=== PATIENT | male | born 1965 | race Caucasian/White ===

== ENCOUNTER 2019-07-05 14:59 | Emergency (ER) | payer MEDICARE, SELFPAY ==
[2019-07-05] VITALS (9 sets, daily range): BP systolic 100–141; BP diastolic 72–97; PULSE 71–90; RESP 12–26; TEMP 36.6; O2SAT 97–100
--- NOTE | ~2019-07-05 | XR_ITS ---
EXAMINATION: XR chest 2V DATE: 07/05/2019 15:44 INDICATION: Midsternal chest pain. TECHNIQUE: Frontal and lateral views of the chest were obtained. COMPARISON: Chest single view 07/07/2018 FINDINGS: The lungs are hyperexpanded with lucencies and architectural distortion, consistent with em physema. There is mild scarring in the midlung zones. There is mild atelectasis at left lung base. No pleural effusion or pneumothorax. The heart size is normal. IMPRESSION: 1. Severe emphysema with mild scarring and mild left basilar atelectasis. Reviewed, dictated and finalized at location A.
--- NOTE | 2019-07-05 15:21 | ECG_ITS ---
Measurements Intervals [place] Rate: 71 P: 84 GA: 138 QRS: 88 QRSD: 93 T: 82 QT: 352 QTc: 384 Interpretive Statements SINUS RHYTHM INCOMPLETE RIGHT BUNDLE BRANCH BLOCK BORDERLINE ECG Electronically Signed On 07-05-2019 17:57:29 CDT by Damian Hui D.O.
--- NOTE | 2019-07-05 15:34 | ED.CHESTPAIN ---
HPI - Chest Pain General Chief Complaint: Chest Pain Stated Complaint: pain in chest area Source: patient Mode of arrival: ambulatory Limitations: no limitations History of Present Illness HPI narrative: 53-year-old with alpha-1 antitrypsin deficiency. At noon today he developed sharp midsternal chest pain, about the size of a half-dollar, rated 7-8/10. Pain occurs only with deep inspiration. It is not positional. Over the ensuing 3-1/2 hours the pain gradually decreased. The pain now is about a 3/10 when he takes a deep breath it does not always occur with every deep breath. He has otherwisebeen feeling his normal baseline self. He is on 4 L continuous O2. He has had no increased dyspnea, fevers, chills, nasal congestion, sore throat or cough. His last neb treatment was about 2 hours ago. He uses his nebulizer several times daily. Three years ago he had a right pneumothorax. Related Data Home Medications Medication Instructions Recorded Confirmed albuterol sulfate 2.5 mg INHALATION Q4-5H PRN 07/05/19 07/05/19 albuterol sulfate [ProAir HFA] 2 puff INHALATION Q4-5H PRN 07/05/19 07/05/19 alpha-1 proteinase inhib.(hum) 1,000 mg IV WEEKLY 07/05/19 07/05/19 [Prolastin-C] buspirone 5 mg PO BID 07/05/19 07/05/19 cyclobenzaprine 10 mg PO BID PRN 07/05/19 07/05/19 ipratropium bromide 1 mg INHALATION BID 07/05/19 07/05/19 Allergies Allergy/AdvReac Type Severity Reaction Status Date / Time No Known Allergies Allergy Verified 07/05/19 15:12 Review of Systems Constitutional: Constitutional: Reports no additional constitutional complaints Cardiovascular: Cardiovascular: Reports no additional cardiovascular complaints Respiratory: Respiratory: Reports no additional respiratory complaints Gastrointestinal: Gastrointestinal: Denies abdominal pain, Denies nausea and Denies vomiting Genitourinary: Genitourinary: Denies dysuria Integumentary/Breasts: Skin/Breast: Denies rash [facility] Past Medical History Medical History (Updated 07/05/19 @ 16:59 by Tyler Briscoe MD) 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 Able to take deep breaths. Vital Signs Vital signs: Vital Signs Temperature 36.6 C 07/05/19 15:17 Pulse Rate 90 07/05/19 15:17 Respiratory Rate 24 H 07/05/19 15:17 Blood Pressure 141/97 H 07/05/19 15:17 Pulse Oximetry 100 07/05/19 15:17 Temperature 36.6 C 07/05/19 15:17 Pulse Rate 73 07/05/19 16:45 Respiratory Rate 26 H 07/05/19 16:45 Blood Pressure 115/73 07/05/19 16:45 Pulse Oximetry 98 07/05/19 16:45 MDM - Chest Pain MDM Narrative Medical decision making narrative: Chest pain only with deep inspiration consistent with pulmonary etiology. X-ray showing atelectasis in the left base explains his symptoms. He had no increased dyspnea or hypoxemia associated with pain making pulmonary embolus on likely, particularly with the noted x-ray findings. No evidence of infection, cardiac ischemia or pneumonia Lab Data Attestation: I reviewed the patient's lab results. Result diagrams: 07/05/19 15:37 07/05/19 15:37 Labs: Lab Results 07/05/19 07/05/19 07/05/19 Range/Units 15:37 15:37 15:37 WBC 9.4 (4.8-10.8) K/mm3 RBC 4.52 L (4.70-6.10) M/mm3 Hgb 12.9 L (14.0-18.0) g/dL Hct 40.6 (40.0-54.0) % MCV 89.8 (78.0-102.0) fL MCH 28.5 (27.0-31.0) pg MCHC 31.8 L (32.0-36.0) g/dL RDW 13.0 (11.6-14.
[2019-07-05 15:41] LABS: Basophils Absolute Auto 0.09 K/mm3 (0.00-0.10); Eosinophils Absolute Auto 0.57 K/mm3 (0.02-0.50); Eosinophils Percent Auto 6.1 % (1.0-6.0); Hematocrit 40.6 % (40.0-54.0); Hemoglobin 12.9 g/dL (14.0-18.0); Immature Granulocyte Absolute 0.02 K/mm3 (0.00-0.00); Immature Granulocyte Percent A 0.2 % (0.0-0.0); Mean Corpuscular HGB Conc 31.8 g/dL (32.0-36.0); Mean Corpuscular Hemoglobin 28.5 pg (27.0-31.0); Mean Corpuscular Volume 89.8 fL (78.0-102.0); Mean Platelet Volume 9.1 fl (8.7-11.0); Monocytes Absolute Auto 1.12 K/mm3 (0.10-0.90); Monocytes Percent Auto 11.9 % (2.0-11.0); Neutrophils Absolute Auto 4.3 K/mm3 (1.7-7.2); Neutrophils Percent Auto 45.8 % (50.0-70.0); Platelet Count Result 241 K/mm3 (150-420); Red Blood Count 4.52 M/mm3 (4.70-6.10); White Blood Count 9.4 K/mm3 (4.8-10.8)
[2019-07-05 15:59] LABS: BNP 9.2 pg/mL (0-100)
[2019-07-05 16:01] LABS: Alanine Aminotransferase 23 U/L (16-63); Albumin Level 3.7 g/dL (3.4-5.0); Alkaline Phosphatase 72 U/L (46-116); Aspartate Amino Transferase 14 U/L (15-37); Bilirubin,Total 0.3 mg/dL (0.00-1.00); Blood Urea Nitrogen 11 mg/dL (7-18); Calcium 8.9 mg/dL (8.5-10.1); Carbon Dioxide 34 mmol/L (21-32); Chloride 100 mmol/L (98-108); Estimated CRCL calculation 100 ml/min; Estimated Glomerular Filt Rate > 60; Glucose 88 mg/dL (70-99); Osmolality Calculated 288 mOsm/kg (285-295); Sodium 140 mmol/L (136-145); Total Protein 6.8 g/dL (6.4-8.2)
[2019-07-05] MEDS: PANTOPRAZOLE SODIUM IV 40 MG VIAL IV PUSH (16:02)
[2019-07-05 16:05] LABS: Troponin I < 0.02 ng/mL (0.00-0.056)
[2019-07-05 16:43] LABS: Erythrocyte Sedimentation Rate 16 mm/hr (0-20)
== END 2019-07-05 17:07 | disposition home or self-care (01) ==
PROVIDERS: Emergency Provider Family Medicine
DX: R07.81 Pleurodynia (principal)
CPT/HCPCS: 36415; 71046; 80053; 83880; 84484; 85025; 85652; 93005; 94640; 96374; 99283; 99284; A9270; C9113

== ENCOUNTER 2019-12-16 13:20 | Outpatient (CLI) | payer MEDICARE, SELFPAY ==
--- NOTE | ~2019-12-16 | XR_ITS ---
XR chest 2V DATE: 12/16/2019 13:47 INDICATION: Midsternal chest, hypoxia TECHNIQUE: PA and lateral views COMPARISON: 07/05/2019 PA and lateral chest FINDINGS: There is prominent bilateral hyperinflation and flattening of the diaphragm and increased r etrosternal airspace, consistent with severe COPD. No pulmonary infiltrate or consolidation, pulmonary vascular congestion or pleural effusion or pneumo thorax. Normal heart size. Diffuse osteopenia. There is mild dextroscoliosis of the thoracic spine. IMPRESSION: Severe COPD Reviewed, dictated and finalized at location A. IMPRESSION: Severe COPD
== END 2019-12-16 13:21 | disposition home or self-care (01) ==
DX: J44.9 Chronic obstructive pulmonary disease, unspecified (principal)
CPT/HCPCS: 71046

== ENCOUNTER 2020-04-04 08:40 | Outpatient (CLI) | payer MEDICARE, SELFPAY ==
--- NOTE | ~2020-04-04 | XR_ITS ---
EXAMINATION: XR chest 2V DATE: 04/04/2020 09:02 INDICATION: Dyspnea. Chronic obstructive pulmonary disease. TECHNIQUE: Frontal and lateral views of the chest were obtained. COMPARISON: Chest 2 views 12/16/2019 FINDINGS: The lungs are hyperexpanded with lucencies including a large bulla at right lung base, cons istent with emphysema. There is mild atelectasis and scarring in the mid and lower lung zones. No ple ural effusion or pneumothorax. The heart size is normal. IMPRESSION: 1. Severe emphysema. Reviewed, dictated and finalized at location A. ICAL UNIT OPERATOR IMPRESSION: 1. Severe emphysema.
== END 2020-04-04 08:41 | disposition home or self-care (01) ==
LOC: CHSIMG 08:43
PROVIDERS: PCP Nurse Practitioner; Visit Provider Internal Medicine Pulmonary Disease
DX: J44.9 Chronic obstructive pulmonary disease, unspecified (principal)
CPT/HCPCS: 71046

== ENCOUNTER 2020-05-29 07:00 | Emergency (ER) | payer MEDICARE, SELFPAY ==
--- NOTE | ~2020-05-29 | XR_ITS ---
EXAMINATION: XR chest 2V DATE: 05/29/2020 07:50 INDICATION: Shortness of breath, reported history of alpha-1 antitrypsin disease. TECHNIQUE: PA and lateral views of the chest are obtained. COMPARISON: 04/04/2020 FINDINGS: The lungs are hyperinflated but free of acute opacities. A large bulla is again noted in th e right lung base. There is no pleural effusion or pneumothorax. The cardiomediastinal silhouette is normal. There is mild thoracic spondylosis. IMPRESSION: 1. No acute cardiopulmonary abnormality. Reviewed, dictated and finalized at location A. AD CUTTER
[2020-05-29 07:00] VITALS: BP 133/86; PULSE 83; RESP 20; TEMP 36.7; O2SAT 100
[2020-05-29 07:10] VITALS: O2SAT 96
[2020-05-29] MEDS: ORPHENADRINE CITRATE 30 MG/ML 2 ML VIAL 60 MG IV PUSH (07:17)
[2020-05-29] MEDS: PANTOPRAZOLE SODIUM IV 40 MG VIAL IV PUSH (07:17)
[2020-05-29 07:28] LABS: Base Excess ABG 2.8 mmol/L (0-2); Basophils Absolute Auto 0.11 K/mm3 (0.00-0.10); Basophils Percent Auto 0.9 % (0.0-1.0); Eosinophils Absolute Auto 0.91 K/mm3 (0.02-0.50); Eosinophils Percent Auto 7.5 % (1.0-6.0); HCO3 ABG 28.7 mmol/L (23-29); Hematocrit 39.5 % (40.0-54.0); Hemoglobin 12.4 g/dL (14.0-18.0); Immature Granulocyte Absolute 0.05 K/mm3 (0.00-0.00); Immature Granulocyte Percent A 0.4 % (0.0-0.0); Lymphocytes Absolute Auto 2.78 K/mm3 (1.10-4.50); Lymphocytes Percent Auto 22.8 % (18.0-42.0); Mean Corpuscular HGB Conc 31.4 g/dL (32.0-36.0); Mean Corpuscular Hemoglobin 27.9 pg (27.0-31.0); Mean Platelet Volume 9.3 fl (8.7-11.0); Monocytes Absolute Auto 1.35 K/mm3 (0.10-0.90); Monocytes Percent Auto 11.1 % (2.0-11.0); Neutrophils Percent Auto 57.3 % (50.0-70.0); Oxygen Content ABG 17.6 %vol (16.0-22.0); Oxyhemoglobin 94.4 % (94-100); PCO2 ABG 49.8 mmHg (35-45); PO2 ABG 74.4 mmHg (80-90); Platelet Count Result 283 K/mm3 (150-420); Red Blood Count 4.44 M/mm3 (4.70-6.10); Red Cell Distribution Width 14.4 % (11.6-14.4); Total Hemoglobin 13.2 g/dL; White Blood Count 12.2 K/mm3 (4.8-10.8); pH ABG 7.38 (7.35-7.45)
[2020-05-29 07:29] LABS: Device NASAL CANNULA; Modified Allen's Test Pass; Site Drawn RIGHT RADIAL
[2020-05-29 07:44] LABS: Alanine Aminotransferase 16 U/L (16-63); Albumin Level 3.7 g/dL (3.4-5.0); Alkaline Phosphatase 88 U/L (46-116); Anion Gap 5 mmol/L (8-16); Aspartate Amino Transferase 14 U/L (15-37); Bilirubin,Total 0.2 mg/dL (0.00-1.00); Blood Urea Nitrogen 17 mg/dL (7-18); Calcium 8.8 mg/dL (8.5-10.1); Carbon Dioxide 35 mmol/L (21-32); Chloride 102 mmol/L (98-108); Estimated Glomerular Filt Rate > 60; Glucose 112 mg/dL (70-99); Magnesium 1.8 mg/dL (1.8-2.4); Osmolality Calculated 296 mOsm/kg (285-295); Potassium 4.4 mmol/L (3.5-5.1); Sodium 142 mmol/L (136-145); Total Protein 7.4 g/dL (6.4-8.2)
--- NOTE | 2020-05-29 07:47 | ED.SOB ---
HPI - SOB/Dyspnea General Chief Complaint: Shortness of Breath/Dyspnea Stated Complaint: ambulance Source: patient Mode of arrival: EMS Limitations: no limitations History of Present Illness HPI Narrative: pt has COPD and about 2 weeks ago breathing got harder. He has had increased trouble since about 0530 am today. He took a breathing treatment, but he states that he usually comes to ED when it gets this bad. He said they give him breathing treatments and muscle relaxants and he begins to feel better. He has no fevers, no illness of anyother type. This is his normal copd exacerbation. MD elicited complaint: shortness of breath Pertinent past history: COPD Onset (ago): hour(s) Context: recent illness Timing: constant Severity: mild Exacerbating factors: exertion Relieving factors: bronchodilators Known history of: COPD Associated symptoms: denies other symptoms (does have some mild nausea a gerd sxs) Treatment prior to arrival: oxygen and bronchodilator Related Data Home oxygen amount: 4 liters Home Medications Medication Instructions Recorded Confirmed albuterol sulfate 2.5 mg INHALATION Q4-5H PRN 07/05/19 05/29/20 albuterol sulfate [ProAir HFA] 2 puff INHALATION Q4-5H PRN 07/05/19 05/29/20 alpha-1 proteinase inhib.(hum) 1,000 mg IV WEEKLY 07/05/19 05/29/20 [Prolastin-C] buspirone 5 mg PO BID 07/05/19 05/29/20 cyclobenzaprine 10 mg PO BID PRN 07/05/19 05/29/20 ipratropium bromide 1 mg INHALATION BID 07/05/19 05/29/20 aspirin [Aspir-81] 81 mg PO DAILY 05/29/20 05/29/20 cholecalciferol (vitamin D3) 10 mcg PO DAILY 05/29/20 05/29/20 [Vitamin D3] ipratropium-albuterol [Combivent 1 puff INHALATION QID 05/29/20 05/29/20 Respimat] teyovpdb-tbg-KT-lycopen-lutein 1 tablet PO DAILY 05/29/20 05/29/20 [Centrum Silver Men] bmrnmrns-uel-ovvibnfe-herb 124 1 ml PO DAILY 05/29/20 05/29/20 [Airborne Natural Energy] tiotropium bromide [Spiriva 2 puff INHALATION DAILY 05/29/20 05/29/20 Respimat] Allergies Allergy/AdvReac Type Severity Reaction Status Date / Time No Known Allergies Allergy Verified 08/09/19 08:37 Review of Systems Review of Systems: All systems reviewed & are unremarkable except as noted in HPI and below Constitutional: Constitutional: Reports no additional constitutional complaints Eyes: Eyes: Reports no additional eye complaints ENT: Reports system reviewed and no additional complaints, except as documented Cardiovascular: Cardiovascular: Reports no additional cardiovascular complaints Respiratory: Respiratory: Reports no additional respiratory complaints Gastrointestinal: Gastrointestinal: Reports no additional gastrointestinal complaints Genitourinary: Genitourinary: Reports no additional male genitourinary complaints Musculoskeletal: Musculoskeletal: Reports no additional musculoskeletal complaints Integumentary/Breasts: Skin/Breast: Reports system reviewed and no additional complaints, except as docu Neurologic: Reports system reviewed and no additional complaints, except as documented Psychiatric: Psychiatric: Reports no additional psychiatric complaints Endocrine: Endocrine: Reports no additional endocrine complaints Hematologic/Lymphatic: Hematologic/Lymphatic: Reports no additional hematologic/lymphatic complaints Allergic/Immunologic: Allergic/Immunologic: Reports no additional allergic/immunologic complaints [facility] Past Medical History Medical History Alpha 1-antitrypsin PiMS phenotype Thoracostomy tube in place Social History Social History (Updated 05/29/20 @ 07:52 by Daxa Arroyo MD) Smoking status: Former smoker Alcohol intake: never Substance use: never Exam Const: General: no acute distress and alert Orientation/consciousness: patient oriented x3 HENMT: Head: normal to inspection Eyes: Conjunctivae: conjunctivae normal Pupils: Equal, round and reactive pupils present Neck:
--- NOTE | 2020-05-29 07:53 | ECG_ITS ---
Measurements Intervals [place] Rate: 76 P: 84 NH: 135 QRS: 90 QRSD: 88 T: 87 QT: 383 QTc: 433 Interpretive Statements SINUS RHYTHM BORDERLINE T WAVE ABNORMALITY- HIGH LATERAL LEADS BASELINE ARTIFACT- V3-V6 BORDERLINE ECG Electronically Signed On 05-29-2020 8:21:40 MANAGER TELE[employer] by Damian Hui D.O.
[2020-05-29] MEDS: IPRATROPIUM 0.5 MG/ALBUTEROL SULFATE 2.5 MG AMPUL.NEB 3 ML INHALATION (08:05)
[2020-05-29 08:06] VITALS: PULSE 77; RESP 20; O2SAT 98
[2020-05-29 08:13] VITALS: PULSE 73; RESP 20; O2SAT 99
[2020-05-29] MEDS: LORazepam (*CRX) 0.5 MG TABLET PO (08:48)
--- NOTE | 2020-05-29 08:49 | PC.NURSE ---
PT ROCKING IN BED, NOW REPORTS RIGHT SIDE BACK PAIN - ATIVAN OFFERED - STATES OTHERWISE FEELING BETTER
[2020-05-29 08:50] VITALS: BP 137/92; PULSE 80; O2SAT 97
[2020-05-29 09:13] VITALS: BP 117/75; PULSE 80; O2SAT 99
== END 2020-05-29 09:15 | disposition home or self-care (01) ==
PROVIDERS: Emergency Medicine; Emergency Provider Emergency Medicine
DX: E88.01 Alpha-1-antitrypsin deficiency (principal)
CPT/HCPCS: 36415; 36600; 71046; 80053; 82805; 83735; 85025; 93005; 94640; 96374; 96375; 99283; 99284; A9270; C9113; J2360

== ENCOUNTER 2020-05-31 08:07 | Emergency (ER) | payer MEDICARE, SELFPAY ==
[2020-05-31 08:23] VITALS: BP 128/84; PULSE 105; RESP 22; TEMP 36.9; O2SAT 95
--- NOTE | 2020-05-31 08:36 | ED.EAR ---
HPI - Ear Problem General Chief complaint: Ear Stated complaint: EAR IS BLEEDING CANT HEAR OUT OF IT Source: patient and family Mode of arrival: ambulatory Limitations: no limitations History of Present Illness HPI Narrative: patient with history of COPD secondary to alpha 1 anti trypsin deficiency was seen yesterday and treated for an upper respiratory tract infection and was started on Z-Ryan and Medrol Dosepak, early this morning developed bleeding from the right ear canal with decreased hearing. Currently does have some pain but described as discomfort, with some sinus congestion. Currently there is no fever or chills currently is not short breath with no cough no congestion no chest pain. MD Complaint: ear discharge and decreased hearing Location: right ear Duration: constant Severity: moderate Relieving factors: nothing Exacerbating factors: nothing Context: Reports recent illness Discharge from ear: Reports yes - bloody Related Data Home Medications Medication Instructions Recorded Confirmed albuterol sulfate 2.5 mg INHALATION Q4-5H PRN 07/05/19 05/31/20 albuterol sulfate [ProAir HFA] 2 puff INHALATION Q4-5H PRN 07/05/19 05/31/20 alpha-1 proteinase inhib.(hum) 1,000 mg IV WEEKLY 07/05/19 05/31/20 [Prolastin-C] buspirone 5 mg PO BID 07/05/19 05/31/20 cyclobenzaprine 10 mg PO BID PRN 07/05/19 05/31/20 ipratropium bromide 1 mg INHALATION BID 07/05/19 05/31/20 aspirin [Aspir-81] 81 mg PO DAILY 05/29/20 05/31/20 cholecalciferol (vitamin D3) 10 mcg PO DAILY 05/29/20 05/31/20 [Vitamin D3] ipratropium-albuterol [Combivent 1 puff INHALATION QID 05/29/20 05/31/20 Respimat] dubmdeaa-isg-HS-lycopen-lutein 1 tablet PO DAILY 05/29/20 05/31/20 [Centrum Silver Men] mosuapsp-puc-ogdmxxfu-herb 124 1 ml PO DAILY 05/29/20 05/31/20 [Airborne Natural Energy] tiotropium bromide [Spiriva 2 puff INHALATION DAILY 05/29/20 05/31/20 Respimat] Allergies Allergy/AdvReac Type Severity Reaction Status Date / Time No Known Allergies Allergy Verified 08/09/19 08:37 Review of Systems Review of Systems: All systems reviewed & are unremarkable except as noted in HPI and below PMFSH Past Medical History Medical History Alpha 1-antitrypsin PiMS phenotype Thoracostomy tube in place Social History Social History Smoking status: Former smoker Alcohol intake: never Substance use: never Exam Const: General: no acute distress and alert Orientation/consciousness: patient oriented x3 HENMT: Other: Right ear canal appears to have blood and he can visualize a ruptured tympanic membrane Eyes: Conjunctivae: conjunctivae normal Pupils: Equal, round and reactive pupils present Chest: Chest palpation & inspection: normal inspection of the chest Resp: Auscultation: diminished lung sounds Cardio: Rate: regular rate Rhythm: regular rhythm GI: Auscultation: normal bowel sounds Back/Spine/Pelvis: Back: no CVA tenderness Neuro: General: patient oriented x3 Extrem: General: normal to inspection Psych: Appearance: grossly normal Mental Status: mental status grossly normal Affect: normal affect Course Course Emergency Course: will give the patient a dose of IM ceftriaxone, advised him to stop his Z-Ryan, and start Augmentin and Cipro otic ear drops and to follow-up with his primary care physician for referral to ENT for further evaluation. Vital Signs Vital signs: Vital Signs Temperature 36.9 C 05/31/20 08:23 Pulse Rate 105 H 05/31/20 08:23 Respiratory Rate 22 H 05/31/20 08:23 Blood Pressure 128/84 05/31/20 08:23 Pulse Oximetry 95 05/31/20 08:23 Temperature 36.9 C 05/31/20 08:23 Pulse Rate 105 H 05/31/20 08:23 Respiratory Rate 22 H 05/31/20 08:23 Blood Pressure 128/84 05/31/20 08:23 Pulse Oximetry 95 05/31/20 08:23 Medical Decision Making Vital Signs Vital Signs:
[2020-05-31] MEDS: cefTRIAXone 1 GM VIAL IM (08:40)
== END 2020-05-31 08:56 | disposition home or self-care (01) ==
PROVIDERS: Emergency Provider Emergency Medicine
DX: H72.91 Unspecified perforation of tympanic membrane, right ear (principal); H91.91 Unspecified hearing loss, right ear; Z87.891 Personal history of nicotine dependence
CPT/HCPCS: 96372; 99283; J0696

== ENCOUNTER 2020-09-05 10:26 | Outpatient (CLI) | payer MEDICARE, SELFPAY ==
[2020-09-05 10:39] LABS: Base Excess ABG 0.4 mmol/L (0-2); HCO3 ABG 25.5 mmol/L (23-29); Oxygen Content ABG 16.5 %vol (16.0-22.0); Oxygen Saturation ABG 91.2 % (95-97); PO2 ABG 58.3 mmHg (80-90); Total Hemoglobin 13.5 g/dL; pH ABG 7.39 (7.35-7.45)
[2020-09-05 10:40] LABS: Site Drawn RIGHT RADIAL
[2020-09-05 10:41] LABS: Device NASAL CANNULA; Modified Allen's Test Pass
--- NOTE | 2020-09-07 12:19 | WPDPFTINT ---
PFT Procedure Performed PFT Procedure Performed Spirometry with Pre/Post Bronchodilator Plethysmography (Lung Vol) Diffusing Cap (DLCO) Flow Vol Loop PFT Interpretation DOS: 09/05/2020 REQUESTING: Dr. Amanda Gil REASON FOR TESTING: emphysema PULMONARY FUNCTION TESTS Results are reliable and reproducible. Spirometry: FEV1 is 19% predicted, 0.59 L. This is extremely low. The FVC is 54% predicted. The FEV1/ FVC ratio was 34% consistent with airflow obstruction. After bronchodilator administration there is a 14% increase in the FVC 190 ml; this does not meet the ATS requirement for 200 ml for statistically significant improvement. Lung volumes: Total lung capacity mildly increased 136%. Residual volume severely increased at 188% consistent with severe air trapping. Airway resistance is elevated 599%. Diffusion: DLCO is 24%. This is a severe reduction. Flow volume loop: Severe scooping of the expiratory limb. IMPRESSION: Extremely severe obstructive ventilatory impairment with response to bronchodilator that does not meet ATS criteria for statistically significant response but this should not preclude use if clinically indicated. Mild hyperinflation with severe air trapping, increased airway resistance and severe diffusion impairment. This is consistent with emphysema. There are no prior studies for comparison. Jelly Lozano MD
== END 2020-09-05 10:27 | disposition home or self-care (01) ==
PROVIDERS: PCP Nurse Practitioner; Visit Provider Internal Medicine Pulmonary Disease
DX: J43.2 Centrilobular emphysema (principal)
CPT/HCPCS: 36600; 82805; 94060; 94726; 94729

== ENCOUNTER 2020-11-29 08:00 | Emergency (ER) | payer MEDICARE, SELFPAY ==
--- NOTE | ~2020-11-29 | XR_ITS ---
XR chest 1V portable 11/29/2020 08:31 Indication: Dyspnea. COPD. Procedure: AP portable chest Comparison: Comparison to multiple prior studies sequentially, with oldest reviewed study dated 08/26. Findings: Severe emphysema. Chronic bibasilar scarring. Heart size normal. No focal pneumonia, edema, pleural effusion or pneumothorax. Calcified granuloma right lower lung zone. No acute osseous abnorm ality. Impression: 1: No acute cardiopulmonary disease. 2: Severe emphysema. Reviewed, dictated and finalized at location A. Impression: 1: No acute cardiopulmonary disease. 2: Severe emphysema.
[2020-11-29 08:10] VITALS: O2SAT 94
[2020-11-29 08:14] VITALS: BP 103/84; PULSE 81; RESP 24; TEMP 36.3; O2SAT 94
--- NOTE | 2020-11-29 08:14 | ED.SOB ---
HPI - SOB/Dyspnea General Chief Complaint: Shortness of Breath/Dyspnea Stated Complaint: SOB Source: patient Mode of arrival: ambulatory Limitations: no limitations History of Present Illness HPI Narrative: Pt is able to speak full sentences. He states this started last night MD elicited complaint: shortness of breath Pertinent past history: COPD Onset (ago): day(s) Context: recent illness Timing: constant Severity: moderate Exacerbating factors: exertion Relieving factors: nothing and other (pt states that he needs a muscle relaxer, he states thats the only thing that will help) Known history of: COPD Associated symptoms: denies other symptoms (muscle tightness) Treatment prior to arrival: bronchodilator Related Data Home oxygen amount: other (6 liters) Home Medications Medication Instructions Recorded Confirmed albuterol sulfate 2.5 mg INHALATION Q4-5H PRN 07/05/19 11/29/20 albuterol sulfate [ProAir HFA] 2 puff INHALATION Q4-5H PRN 07/05/19 11/29/20 alpha-1 proteinase inhib.(hum) 1,000 mg IV WEEKLY 07/05/19 11/29/20 [Prolastin-C] buspirone 5 mg PO BID 07/05/19 11/29/20 cyclobenzaprine 10 mg PO BID PRN 07/05/19 11/29/20 ipratropium bromide 1 mg INHALATION BID 07/05/19 11/29/20 aspirin [Aspir-81] 81 mg PO DAILY 05/29/20 11/29/20 cholecalciferol (vitamin D3) 10 mcg PO DAILY 05/29/20 11/29/20 [Vitamin D3] ipratropium-albuterol [Combivent 1 puff INHALATION QID 05/29/20 11/29/20 Respimat] lnjhemuv-kyy-PW-lycopen-lutein 1 tablet PO DAILY 05/29/20 11/29/20 [Centrum Silver Men] jaauulqx-lhs-guajbdjq-herb 124 1 ml PO DAILY 05/29/20 11/29/20 [Airborne Natural Energy] tiotropium bromide [Spiriva 2 puff INHALATION DAILY 05/29/20 11/29/20 Respimat] Allergies Allergy/AdvReac Type Severity Reaction Status Date / Time No Known Allergies Allergy Verified 08/09/19 08:37 Review of Systems Constitutional: Constitutional: Reports no additional constitutional complaints Eyes: Eyes: Reports no additional eye complaints ENT: Reports system reviewed and no additional complaints, except as documented Cardiovascular: Cardiovascular: Reports no additional cardiovascular complaints and Reports chest pain (states that his chest tighness is muscle related) Respiratory: Respiratory: Denies chest congestion, Denies cough, Reports dyspnea and Reports wheezing Gastrointestinal: Gastrointestinal: Reports no additional gastrointestinal complaints Genitourinary: Genitourinary: Reports no additional male genitourinary complaints Musculoskeletal: Musculoskeletal: Reports no additional musculoskeletal complaints Integumentary/Breasts: Skin/Breast: Reports system reviewed and no additional complaints, except as docu Neurologic: Reports system reviewed and no additional complaints, except as documented Psychiatric: Psychiatric: Reports no additional psychiatric complaints Endocrine: Endocrine: Reports no additional endocrine complaints Hematologic/Lymphatic: Hematologic/Lymphatic: Reports no additional hematologic/lymphatic complaints Allergic/Immunologic: Allergic/Immunologic: Reports no additional allergic/immunologic complaints PMFSH Past Medical History Medical History 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
--- NOTE | 2020-11-29 08:15 | ECG_ITS ---
Measurements Intervals [place] Rate: 74 P: 86 NM: 124 QRS: 89 QRSD: 85 T: 87 QT: 359 QTc: 399 Interpretive Statements SINUS RHYTHM INCOMPLETE RIGHT BUNDLE BRANCH BLOCK DELAYED PRECORDIAL R/S TRANSITION MINIMAL Q WAVES- INFERIOR LEADS BASELINE ARTIFACT- V2-V4 BORDERLINE ECG Electronically Signed On 11-29-2020 11:10:46 CDT by Damian Hui D.O.
[2020-11-29] MEDS: LORazepam INJ (*CRX) 2 MG/ML VIAL 1 MG IV PUSH (08:25)
[2020-11-29] MEDS: methylPREDNISolone SOD SUCC 125 MG VIAL IV PUSH (08:27)
[2020-11-29] MEDS: IPRATROPIUM 0.5 MG/ALBUTEROL SULFATE 2.5 MG AMPUL.NEB 3 ML INHALATION (08:41)
[2020-11-29 08:44] VITALS: PULSE 72; RESP 24; O2SAT 99
[2020-11-29 08:44] LABS: Basophils Absolute Auto 0.08 K/mm3 (0.00-0.10); Basophils Percent Auto 0.5 % (0.0-1.0); Eosinophils Absolute Auto 0.59 K/mm3 (0.02-0.50); Eosinophils Percent Auto 3.5 % (1.0-6.0); Hematocrit 41.9 % (40.0-54.0); Hemoglobin 13.2 g/dL (14.0-18.0); Immature Granulocyte Absolute 0.06 K/mm3 (0.00-0.00); Immature Granulocyte Percent A 0.4 % (0.0-0.0); Lymphocytes Absolute Auto 3.59 K/mm3 (1.10-4.50); Mean Corpuscular HGB Conc 31.5 g/dL (32.0-36.0); Mean Corpuscular Hemoglobin 28.6 pg (27.0-31.0); Mean Corpuscular Volume 90.7 fL (78.0-102.0); Mean Platelet Volume 9.3 fl (8.7-11.0); Monocytes Absolute Auto 1.59 K/mm3 (0.10-0.90); Monocytes Percent Auto 9.3 % (2.0-11.0); Neutrophils Absolute Auto 11.2 K/mm3 (1.7-7.2); Neutrophils Percent Auto 65.3 % (50.0-70.0); Platelet Count Result 323 K/mm3 (150-420); Red Blood Count 4.62 M/mm3 (4.70-6.10); Red Cell Distribution Width 14.2 % (11.6-14.4); White Blood Count 17.1 K/mm3 (4.8-10.8)
[2020-11-29 08:55] VITALS: PULSE 74; RESP 24; O2SAT 100
[2020-11-29 08:56] LABS: D Dimer 0.34 mg/L (0.19-0.50)
[2020-11-29 09:01] LABS: Alanine Aminotransferase 27 U/L (16-63); Albumin Level 3.5 g/dL (3.4-5.0); Alkaline Phosphatase 77 U/L (46-116); Anion Gap 9 mmol/L (8-16); Aspartate Amino Transferase 30 U/L (15-37); Bilirubin,Total 0.2 mg/dL (0.00-1.00); Blood Urea Nitrogen 16 mg/dL (7-18); Calcium 8.8 mg/dL (8.5-10.1); Carbon Dioxide 33 mmol/L (21-32); Chloride 103 mmol/L (98-108); Estimated CRCL calculation 91 ml/min; Estimated Glomerular Filt Rate > 60; Glucose 151 mg/dL (70-99); Osmolality Calculated 304 mOsm/kg (285-295); Potassium 3.7 mmol/L (3.5-5.1); Sodium 145 mmol/L (136-145); Total Protein 7.2 g/dL (6.4-8.2); Troponin I 6.4 ng/L (0.00-60.4)
[2020-11-29 09:02] LABS: Magnesium 1.8 mg/dL (1.8-2.4)
[2020-11-29 09:22] VITALS: BP 111/93; PULSE 89; RESP 24; O2SAT 95
[2020-11-29 09:28] LABS: Base Excess ABG 2.8 mmol/L (0-2); HCO3 ABG 29.9 mmol/L (23-29); Oxygen Content ABG 17.5 %vol (16.0-22.0); Oxygen Saturation ABG 96.7 % (95-97); Oxyhemoglobin 95.1 % (94-100); PCO2 ABG 57.1 mmHg (35-45); PO2 ABG 90.9 mmHg (80-90); pH ABG 7.34 (7.35-7.45)
[2020-11-29 09:32] LABS: Device NASAL CANNULA; Modified Allen's Test Pass; Site Drawn RIGHT RADIAL
[2020-11-29 10:03] VITALS: RESP 24; O2SAT 98
== END 2020-11-29 10:05 | disposition home or self-care (01) ==
PROVIDERS: Emergency Provider Emergency Medicine; PCP Nurse Practitioner
DX: E88.01 Alpha-1-antitrypsin deficiency (principal)
CPT/HCPCS: 36415; 36600; 71045; 80053; 82805; 83735; 84484; 85025; 85380; 93005; 94640; 96374; 96375; 99283; 99284; J2060; J2930

== ENCOUNTER 2020-12-10 12:41 | Emergency (ER) | payer MEDICARE, SELFPAY ==
--- NOTE | ~2020-12-10 | US_ITS ---
EXAMINATION: US venous doppler [facility] EXAM DATE: 12/10/2020 13:49 INDICATION: calf pain . TECHNIQUE: Multiple grayscale, color flow and Doppler images of the left lower extremity deep venous system were obtained and reviewed. There is no prior study for comparison. FINDINGS: The left common femoral, femoral and profunda veins demonstrate normal color flow, respirat ory variation, augmentation and compressibility. Compressibility, color flow confirmed within the le ft popliteal, posterior tibial, peroneal, and greater saphenous veins. IMPRESSION: 1. No left lower extremity deep venous thrombosis. Reviewed, dictated and finalized at location B.
[2020-12-10 13:00] VITALS: BP 141/86; PULSE 99; RESP 24; TEMP 37.1; O2SAT 98
--- NOTE | 2020-12-10 14:03 | ED.LOWEXIN ---
HPI - Extremity Injury (Lower) General Chief Complaint: Extremity Injury, Lower Stated Complaint: L Leg pain Source: patient and family Mode of arrival: ambulatory History of Present Illness HPI Narrative: this is a 55-year-old gentleman that presents with some left calf pain after he had a blunt injury to posterior calf area has good range of motion with no joint pain no foot or ankle pain no swelling no bruising there is no erythema no warmth or tenderness with palpation currently the patient saw his visiting nurse today and was concerned that there may be a DVT and wanted to come to the emergency department to have that evaluated. Currently there is no swelling no erythema no calf tenderness. MD complaint: other ( Calf pain /injury) Onset (ago): day(s) Type of Injury: blunt Place: home Severity: mild Severity scale (1-10): 2 Relieving factors: nothing Exacerbating factors: nothing Context: direct blow Related Data Home Medications Medication Instructions Recorded Confirmed albuterol sulfate 2.5 mg INHALATION Q4-5H PRN 07/05/19 11/29/20 albuterol sulfate [ProAir HFA] 2 puff INHALATION Q4-5H PRN 07/05/19 11/29/20 alpha-1 proteinase inhib.(hum) 1,000 mg IV WEEKLY 07/05/19 11/29/20 [Prolastin-C] buspirone 5 mg PO BID 07/05/19 11/29/20 cyclobenzaprine 10 mg PO BID PRN 07/05/19 11/29/20 ipratropium bromide 1 mg INHALATION BID 07/05/19 11/29/20 aspirin [Aspir-81] 81 mg PO DAILY 05/29/20 11/29/20 cholecalciferol (vitamin D3) 10 mcg PO DAILY 05/29/20 11/29/20 [Vitamin D3] ipratropium-albuterol [Combivent 1 puff INHALATION QID 05/29/20 11/29/20 Respimat] uwndrfkn-ezl-YX-lycopen-lutein 1 tablet PO DAILY 05/29/20 11/29/20 [Centrum Silver Men] khddlyqi-ven-tqivrxsw-herb 124 1 ml PO DAILY 05/29/20 11/29/20 [Airborne Natural Energy] tiotropium bromide [Spiriva 2 puff INHALATION DAILY 05/29/20 11/29/20 Respimat] Allergies Allergy/AdvReac Type Severity Reaction Status Date / Time No Known Allergies Allergy Verified 08/09/19 08:37 Review of Systems Review of Systems: All systems reviewed & are unremarkable except as noted in HPI and below PMFSH Past Medical History Medical History Alpha 1-antitrypsin PiMS phenotype Thoracostomy tube in place Social History Social History Smoking status: Former smoker Alcohol intake: never Substance use: never Exam Const: General: no acute distress Orientation/consciousness: patient oriented x3 HENMT: Head: normal to inspection Eyes: Conjunctivae: conjunctivae normal Pupils: Equal, round and reactive pupils present Neck: Neck: normal visual inspection, no lymphadenopathy and no meningeal signs Chest: Chest palpation & inspection: normal inspection of the chest Resp: Effort & Inspection: normal respiratory effort Auscultation: clear to auscultation bilaterally Cardio: Rate: regular rate Rhythm: regular rhythm Urinary Catheter: Urinary Catheter: patent and draining Back/Spine/Pelvis: Back: no CVA tenderness Skin: General skin exam: normal color Rashes: no rashes Neuro: General: patient oriented x3 and moves all extremities Extrem: General: normal to inspection and no pedal edema Other: Currently no calf pain no swelling no erythema. Psych: Mental Status: mental status grossly normal Affect: normal affect Attitude: cooperative Course Course Emergency Course: Ultrasound results reviewed with patient which showed no DVT advised patient to follow-up with his primary care physician, can take Tylenol or Motrin. Vital Signs Vital signs: Vital Signs Temperature 37.1 C 12/10/20 13:00 Pulse Rate 99 12/10/20 13:00 Respiratory Rate 24 H 12/10/20 13:00 Blood Pressure 141/86 H 12/10/20 13:00 Pulse Oximetry 98 12/10/20 13:00 Temperature 37.1 C 12/10/20 13:00 Pulse Rate 99 12/10/20 13:00 Respiratory Rate 24 H
[2020-12-10 14:14] VITALS: RESP 22; O2SAT 98
== END 2020-12-10 14:23 | disposition home or self-care (01) ==
PROVIDERS: Emergency Provider Emergency Medicine; PCP Nurse Practitioner
DX: S86.912A Strain of unspecified muscle(s) and tendon(s) at lower leg level, left leg, initial encounter (principal); W22.8XXA Striking against or struck by other objects, initial encounter; Z87.891 Personal history of nicotine dependence; Z93.8 Other artificial opening status
CPT/HCPCS: 93971; 99282; 99284

== ENCOUNTER 2021-06-17 06:16 | Emergency (ER) | payer MEDICARE, SELFPAY ==
[2021-06-17] VITALS (17 sets, daily range): BP systolic 107–143; BP diastolic 71–91; PULSE 74–101; RESP 18–28; TEMP 36.3–37; O2SAT 94–100
--- NOTE | ~2021-06-17 | CT_ITS ---
EXAMINATION: CT chest abdomen pelvis wo con DATE: 06/17/2021 07:28 INDICATION: Shortness of breath. Abdominal distention. Generalized abdominal pain. TECHNIQUE: Computed tomography (CT) of the chest, abdomen, and pelvis was performed without intraveno us contrast. Automated exposure control and iterative reconstruction technique were employed. The dos e-length product was 601.71 mGy-cm. COMPARISON: None FINDINGS: CHEST CT: There is severe emphysema. There are airspace opacities in the right lower lobe with a basilar predom inance. There are mild airspace opacities in right upper lobe and left lower lobe. These findings are consistent with pneumonia. No pleural effusion. The heart size is normal. No pericardial effusion. T here is mild thoracic spondylosis. ABDOMEN/PELVIS CT: The liver and spleen are normal. There are gallstones in the gallbladder, which is distended. The kaiser creas and adrenal glands are normal. There are two 1 mm stones in right kidney. Left kidney is normal . There are bilateral inguinal hernias containing fat. There is an umbilical hernia containing fat. T here are no dilated loops of bowel. The appendix is normal. There are no pathologically enlarged lymp h nodes. There is no free intraperitoneal fluid. There is osteonecrosis of the femoral heads. There i s mild lumbar spondylosis. IMPRESSION: 1. Multifocal pneumonia, worst in right lower lobe. 2. Severe emphysema. 3. Cholelithiasis. Gallbladder distention may be secondary to fasting or acute cholecystitis. Correla te with physical exam. Reviewed, dictated and finalized at location A. URCE COORDINATOR IMPRESSION: 1. Multifocal pneumonia, worst in right lower lobe. 2. Severe emphysema. 3. Cholelithiasis. Gallbladder distention may be secondary to fasting or acute cholecystitis. Correlate with physical exam.
--- NOTE | ~2021-06-17 | CT_ITS ---
EXAMINATION: CTA chest PE protocol EXAM DATE: 06/18/2021 16:25 INDICATION: Severe SOB and cough. TECHNIQUE: Spiral CTA of the chest (pulmonary arteries) was performed with 100 cc Omnipaque 350 intr avenous contrast injection. Images were acquired during the pulmonary arterial phase. Coronal maxi mum intensity projection 3D-reconstructions were created by the technologist on dedicated workstation . Axial, coronal and sagittal reformatted images were reviewed. The dose-length product (DLP) for t his examination was 355.14 mGy-cm. The exposure was tailored according to patient size (auto mA exp osure control), and iterative reconstruction (ASIR) was used as additional dose reduction technique. Comparison is made to prior examination from 06/17/2021. FINDINGS: Pulmonary arteries are well opacified and without intraluminal filling defects. No thora cic aortic dissection. Scattered regions of right basilar predominant airspace disease consistent wi th pneumonia, stable or with minimal improvement. There is hyperinflation. There are no pleural or p ericardial effusions. Tracheobronchial tree is patent. There is no mediastinal, hilar or axillary lymphadenopathy. There is no pneumothorax. Heart normal in size. Cholelithiasis. There is tho racic spondylosis without osteoblastic or osteolytic lesions identified. IMPRESSION: 1. No pulmonary emboli suspected. 2. Multifocal right basilar predominant pneumonia, stable or minimal improvement. 3. Severe emphysema and hyperinflation. 4. Cholelithiasis. Reviewed, dictated and finalized at location A. ERTY MANAGEMENT ACCOUNTANT IMPRESSION: 1. No pulmonary emboli suspected. 2. Multifocal right basilar predominant pneumonia, stable or minimal improveme nt. 3. Severe emphysema and hyperinflation. 4. Cholelithiasis.
--- NOTE | 2021-06-17 06:36 | ECG_ITS ---
Measurements Intervals Lindsey Rate: 80 P: 156 WI: 125 QRS: 133 QRSD: 106 T: 128 QT: 354 QTc: 409 Interpretive Statements ECTOPIC ATRIAL RHYTHM POSSIBLE RIGHT VENTRICULAR HYPERTROPHY Electronically Signed On 06-18-2021 12:14:21 UX DESIGN LEAD by Jamar Vasquez M.D.
[2021-06-17] MEDS: MORPHINE SULFATE (*CRX) 2 MG/ML INJ IV PUSH (06:44)
[2021-06-17] MEDS: ONDANSETRON INJ 4 MG/2 ML VIAL IV PUSH (06:45)
[2021-06-17 06:59] LABS: Basophils Absolute Auto 0.09 K/mm3 (0.00-0.10); Basophils Percent Auto 0.6 % (0.0-1.0); Eosinophils Absolute Auto 0.72 K/mm3 (0.02-0.50); Eosinophils Percent Auto 4.7 % (1.0-6.0); Hematocrit 39.5 % (40.0-54.0); Hemoglobin 12.1 g/dL (14.0-18.0); Immature Granulocyte Absolute 0.05 K/mm3 (0.00-0.00); Immature Granulocyte Percent A 0.3 % (0.0-0.0); Lymphocytes Absolute Auto 2.66 K/mm3 (1.10-4.50); Lymphocytes Percent Auto 17.4 % (18.0-42.0); Mean Corpuscular HGB Conc 30.6 g/dL (32.0-36.0); Mean Corpuscular Hemoglobin 28.1 pg (27.0-31.0); Mean Corpuscular Volume 91.9 fL (78.0-102.0); Mean Platelet Volume 9.6 fl (8.7-11.0); Monocytes Absolute Auto 1.53 K/mm3 (0.10-0.90); Neutrophils Absolute Auto 10.3 K/mm3 (1.7-7.2); Platelet Count Result 401 K/mm3 (150-420); Red Cell Distribution Width 12.8 % (11.6-14.4); White Blood Count 15.3 K/mm3 (4.8-10.8)
--- NOTE | 2021-06-17 07:04 | ED.SOB ---
HPI - SOB/Dyspnea General Source: patient, EMS, RN notes reviewed and old records reviewed <Michelle Brewster MD - Last Filed: 06/18/21 14:26> Mode of arrival: EMS <Michelle Brewster MD - Last Filed: 06/18/21 14:26> Limitations: no limitations <Michelle Brewster MD - Last Filed: 06/18/21 14:26> History of Present Illness MD elicited complaint: shortness of breath, pain with inspiration (also mild abdominal distention + generalized pain. no acute GI loss.), chest pain and anxiety <Michelle Brewster MD - Last Filed: 06/18/21 14:26> Pertinent past history: asthma and pneumonia <Michelle Brewster MD - Last Filed: 06/18/21 14:26> Onset (ago): hour(s) (4) <Michelle Brewster MD - Last Filed: 06/18/21 14:26> Timing: constant <Michelle Brewster MD - Last Filed: 06/18/21 14:26> Severity: mild <Michelle Brewster MD - Last Filed: 06/18/21 14:26> Exacerbating factors: nothing <Michelle Brewster MD - Last Filed: 06/18/21 14:26> Relieving factors: oxygen and bronchodilators <Michelle Brewster MD - Last Filed: 06/18/21 14:26> Known history of: COPD and asthma <Michelle Brewster MD - Last Filed: 06/18/21 14:26> Associated symptoms: wheezing, sense of impending doom and chest congestion <Michelle Brewster MD - Last Filed: 06/18/21 14:26> Treatment prior to arrival: oxygen and bronchodilator <Michelle Brewster MD - Last Filed: 06/18/21 14:26> Related Data Home Medications: Home Medications Medication Instructions Recorded Confirmed albuterol sulfate 2.5 mg INHALATION Q4-5H PRN 07/05/19 06/17/21 albuterol sulfate [ProAir HFA] 2 puff INHALATION Q4-5H PRN 07/05/19 06/17/21 alpha-1 proteinase inhib.(hum) 1,000 mg IV WEEKLY 07/05/19 06/17/21 [Prolastin-C] buspirone 5 mg PO BID 07/05/19 06/17/21 cyclobenzaprine 10 mg PO BID PRN 07/05/19 06/17/21 ipratropium bromide 1 mg INHALATION BID 07/05/19 06/17/21 aspirin [Aspir-81] 81 mg PO DAILY 05/29/20 06/17/21 cholecalciferol (vitamin D3) 10 mcg PO DAILY 05/29/20 06/17/21 [Vitamin D3] ipratropium-albuterol [Combivent 1 puff INHALATION QID 05/29/20 06/17/21 Respimat] eimydrsp-iqo-JT-lycopen-lutein 1 tablet PO DAILY 05/29/20 06/17/21 [Centrum Silver Men] wkxuidou-siz-ywgropyf-herb 124 1 ml PO DAILY 05/29/20 06/17/21 [Airborne Natural Energy] tiotropium bromide [Spiriva 2 puff INHALATION DAILY 05/29/20 06/17/21 Respimat] buspirone 5 mg PO DAILY 06/17/21 06/17/21 methylprednisolone 4 mg PO DAILY 06/17/21 06/17/21 <Michelle Brewster MD - Last Filed: 06/18/21 14:26> Allergies/Adverse Reactions: Allergies Allergy/AdvReac Type Severity Reaction Status Date / Time No Known Allergies Allergy Verified 06/17/21 06:33 <Michelle Brewster MD - Last Filed: 06/18/21 14:26> Review of Systems Review of Systems: All systems reviewed & are unremarkable except as noted in HPI and below <Michelle Brewster MD - Last Filed: 06/18/21 14:26> [facility] Past Medical History Medical History: Medical History (Updated 06/17/21 @ 08:27 by Faraz Velasco MD) Abdominal pain Alpha 1-antitrypsin PiMS phenotype SOB (shortness of breath) Thoracostomy tube in place <Michelle Brewster MD - Last Filed: 06/18/21 14:26> Social History Social History: Social History Smoking status: Former smoker Alcohol intake: never Substance use: never <Michelle Brewster MD - Last Filed: 06/18/21 14:26> Exam Const: General: ill appearing <Michelle Brewster MD - Last Filed: 06/18/21 14:26> Nutritional Appearance: well nourished <Michelle Brewster MD - Last Filed: 06/18/21 14:26> Orientation/consciousness: patient oriented x3 <Michelle Brewster MD - Last Filed: 06/18/21 14:26> Other: pt was working to breathe and wheezing in the ED. <Michelle Brewster MD - Last Filed: 06/18/21 14:26> HENMT: Ears: external ears normal, TM's norm
[2021-06-17 07:21] LABS: Lactic Acid Reflex 0.9 mmol/L (0.4-2.0)
[2021-06-17 07:23] LABS: Alanine Aminotransferase 21 U/L (16-63); Albumin Level 3.4 g/dL (3.4-5.0); Alkaline Phosphatase 79 U/L (46-116); Anion Gap 8 mmol/L (8-16); Aspartate Amino Transferase 16 U/L (15-37); Bilirubin,Total 0.2 mg/dL (0.00-1.00); Blood Urea Nitrogen 14 mg/dL (7-18); Calcium 9.4 mg/dL (8.5-10.1); Carbon Dioxide 31 mmol/L (21-32); Chloride 101 mmol/L (98-108); Estimated CRCL calculation 99 ml/min; Estimated Glomerular Filt Rate > 60; Glucose 146 mg/dL (70-99); NT Pro B Type Natriuretic Pept 28 pg/mL (0-125); Osmolality Calculated 293 mOsm/kg (285-295); Potassium 4.6 mmol/L (3.5-5.1); Sodium 140 mmol/L (136-145); Total Protein 7.6 g/dL (6.4-8.2); Troponin I 6.6 ng/L (0.00-60.4)
[2021-06-17] MEDS: ALBUTEROL SULFATE (*SP) INHALER 4 PUFF INHALATION (07:30)
[2021-06-17 07:42] LABS: Base Excess ABG 2.2 mmol/L (0-2); HCO3 ABG 29.3 mmol/L (23-29); Oxygen Content ABG 14.5 %vol (16.0-22.0); Oxygen Saturation ABG 81.6 % (95-97); Oxyhemoglobin 80.8 % (94-100); PCO2 ABG 56.9 mmHg (35-45); PO2 ABG 46.3 mmHg (80-90); Total Hemoglobin 12.8 g/dL (12.0-18.0); pH ABG 7.33 (7.35-7.45)
[2021-06-17 07:43] LABS: Modified Allen's Test Pass; Site Drawn LEFT RADIAL
[2021-06-17 07:44] LABS: Device NASAL CANNULA
--- NOTE | 2021-06-17 09:22 | PC.NURSE ---
Call initiated for transfer to [facility]. Spoke to
--- NOTE | 2021-06-17 09:28 | PC.NURSE ---
[facility] returned call and do not have any general status beds available.
--- NOTE | 2021-06-17 09:30 | PC.NURSE ---
Spoke with Raymond, Finishing Range Supervisor at [facility] to initiate transfer.
--- NOTE | 2021-06-17 09:55 | PC.NURSE ---
Pt accepted at [facility] but does not currently have an open bed available.
[2021-06-17 10:14] LABS: SARS-CoV-2 RNA PCR Negative (Negative)
--- NOTE | 2021-06-17 10:21 | PC.NURSE ---
Face sheet faxed to Carmen at [facility] per her request.
--- NOTE | 2021-06-17 11:57 | PC.NURSE ---
Pt given food tray and removed from monitor. Pt doing well at this time. Family updated on plan of care. All questions and concerns addressed.
--- NOTE | 2021-06-17 12:03 | PC.NURSE ---
Pt is on waitlist at [facility]. Will be sent upstairs as a hold. Claudia notified and took phone report. Pt going to room 204.
--- NOTE | 2021-06-17 12:30 | PC.NURSE ---
Here as ER hold, to room 204, advised of visitor policy, oriented to room, awaiting bed at [facility], oxygen on as per home dose of 6 L NC, denies needs, scattered wheezes noted and acevedo noted, purse lip breathing at times, abd rounded, pliable, BS present
[2021-06-17] MEDS: IPRATROPIUM 0.5 MG/ALBUTEROL SULFATE 2.5 MG AMPUL.NEB 3 ML INHALATION ×3 (12:56→23:33)
--- NOTE | 2021-06-17 12:57 | PC.NURSE ---
nausea with pain in abdomen after starting infusion of zithromax, Dr Velasco contacted, order to slow rate, some pain at site, no redness or edema
--- NOTE | 2021-06-17 14:07 | PC.NURSE ---
No emesis, resting quietly, tolerated zithromax after slowing rate, at bedside, continue to wait for a bed at [facility]
--- NOTE | 2021-06-17 15:11 | PC.NURSE ---
Report received, pt sleeping at this time c at bedside. Pt sleeping side-lying position c O2 in place, no distress noted. Call haddad at pt side. Discussed c POC and she is aware of transfer and still awaiting bed placement at [facility].
--- NOTE | 2021-06-17 16:24 | PC.NURSE ---
Call placed to [facility] for bed status update...still awaiting bed as due to no beds available, pt still on wait list and they will call when bed is available.
--- NOTE | 2021-06-17 16:42 | PC.NURSE ---
Pt awakens easily and is fully A&Ox3, VSS, discussed POC and bed status update c pt for transfer purposes and pt reports he isn't happy to be sitting here taking up a bed for something that he could wait out at home . Pt states he will stay until noon tomorrow and then if still no bed transfer available he will talk to his Dr and do everything on O/P basis.
--- NOTE | 2021-06-17 18:17 | PC.NURSE ---
Patient ate 50% of supper and drank 200ml.
--- NOTE | 2021-06-17 18:24 | PC.NURSE ---
MD called up from ER to check on patient's status.
--- NOTE | 2021-06-17 18:25 | PC.NURSE ---
notified that patient is c/o headache. to put in Tylenol order.
[2021-06-17] MEDS: ACETAMINOPHEN 325 MG TABLET 650 MG PO (18:37)
[2021-06-17] MEDS: busPIRone HCL 5 MG TABLET PO (21:35)
[2021-06-17] MEDS: CYCLOBENZAPRINE HCL 10 MG TABLET PO (21:35)
--- NOTE | 2021-06-17 21:44 | PC.NURSE ---
Patient stated his brought in ASA 81 mg, cyclobenzaprine and buspar. He took medicine before she left
--- NOTE | 2021-06-17 23:16 | PC.NURSE ---
Patient resting at this time
[2021-06-18] VITALS (12 sets, daily range): BP systolic 95–132; BP diastolic 62–90; PULSE 66–90; RESP 16–20; TEMP 36.4–37; O2SAT 96–100
--- NOTE | 2021-06-18 03:52 | PC.NURSE ---
Patient dislodged luer lock on IV whole sleeping. IV removed intact. Did not replace at this time. Patient stated he was leaving in AM if transfer did not occur.
[2021-06-18] MEDS: ACETAMINOPHEN 325 MG TABLET 650 MG PO (04:37)
[2021-06-18] MEDS: CYCLOBENZAPRINE HCL 10 MG TABLET PO (04:40)
--- NOTE | 2021-06-18 04:49 | PC.NURSE ---
Patient complaining of back spasms after completed ADL's. Noted to be grimacing and holding ribs. PRN flexeril and tylenol given.
[2021-06-18] MEDS: IPRATROPIUM 0.5 MG/ALBUTEROL SULFATE 2.5 MG AMPUL.NEB 3 ML INHALATION ×3 (05:41→17:31)
[2021-06-18 07:25] LABS: Base Excess ABG 3.6 mmol/L (0-2); Basophils Absolute Auto 0.02 K/mm3 (0.00-0.10); Basophils Percent Auto 0.1 % (0.0-1.0); HCO3 ABG 29.1 mmol/L (23-29); Hematocrit 33.6 % (40.0-54.0); Hemoglobin 10.5 g/dL (14.0-18.0); Immature Granulocyte Absolute 0.11 K/mm3 (0.00-0.00); Immature Granulocyte Percent A 0.6 % (0.0-0.0); Lymphocytes Absolute Auto 1.92 K/mm3 (1.10-4.50); Lymphocytes Percent Auto 9.7 % (18.0-42.0); Mean Corpuscular HGB Conc 31.3 g/dL (32.0-36.0); Mean Corpuscular Hemoglobin 28.5 pg (27.0-31.0); Mean Corpuscular Volume 91.1 fL (78.0-102.0); Mean Platelet Volume 9.3 fl (8.7-11.0); Monocytes Percent Auto 9.1 % (2.0-11.0); Neutrophils Absolute Auto 15.9 K/mm3 (1.7-7.2); Neutrophils Percent Auto 80.5 % (50.0-70.0); Oxygen Content ABG 15.7 %vol (16.0-22.0); Oxygen Saturation ABG 96.9 % (95-97); Oxyhemoglobin 96.2 % (94-100); PCO2 ABG 47.8 mmHg (35-45); PO2 ABG 93.7 mmHg (80-90); Platelet Count Result 384 K/mm3 (150-420); Red Blood Count 3.69 M/mm3 (4.70-6.10); Red Cell Distribution Width 12.8 % (11.6-14.4); Total Hemoglobin 11.5 g/dL (12.0-18.0); White Blood Count 19.7 K/mm3 (4.8-10.8)
[2021-06-18 07:26] LABS: Device NASAL CANNULA; Modified Allen's Test Pass; Site Drawn LEFT RADIAL
[2021-06-18] MEDS: CHOLECALCIFEROL 400 UNITS TABLET (VIT D) PO (09:11)
[2021-06-18] MEDS: MULTIVITAMINS THERAPEUTIC TAB (*BKC) 1 TABLET PO (09:11)
[2021-06-18] MEDS: OPTI-GEN TAB 1 TABLET PO (09:11)
[2021-06-18] MEDS: predniSONE 10 MG TABLET PO (09:11)
--- NOTE | 2021-06-18 10:00 | PC.NURSE ---
Patient states azithromycin was making him nauseous, Dr. Brewster notified, medication stopped and will be given oral.
--- NOTE | 2021-06-18 10:26 | PC.NURSE ---
Covid results faxed to [facility] per request
--- NOTE | 2021-06-18 11:05 | PCCCNOTE ---
Pt completed Advance Directive. Copy of Advance Directive placed on chart and gave pt the original and 3 copies. He named his Mari ([phone]) to be his POA. He wants to be a full code.
--- NOTE | 2021-06-18 13:19 | PC.NURSE ---
Dr Brewster speaking with patients interlibrary loan services librarian Dr Gil
--- NOTE | 2021-06-18 13:55 | PC.NURSE ---
1350 spoke with pt regarding no beds available at [facility]. pt wanted to be admitted to [facility]. explained to pt , hospitalist dr toribio, declined admission and wants pt to go to facility with environmental services technician. explained to pt other options for transfer, pt requested attempt to admit to [facility]. call placed Katy , warehouse hand,awaiting call back.
[2021-06-18] MEDS: predniSONE 5 MG TABLET 15 MG PO (15:00)
[2021-06-18 15:57] LABS: Influenza A QL RT-PCR Negative (Negative); Influenza B QL RT-PCR Negative (Negative)
--- NOTE | 2021-06-18 16:00 | PC.NURSE ---
This nurse spoke with patient about Dr. Hanley safety glass installer from [facility] requesting a CTA be done on patient. Patient states understanding of procedure and agrees.
[2021-06-18 16:07] LABS: D Dimer 0.52 mg/L (0.19-0.50)
--- NOTE | 2021-06-18 17:20 | PC.NURSE ---
Patient aware he is to be transferred to [facility]. Patient states he is not happy about being transferred there but he agrees to go. States he is not happy because the previous doctor(Rod) promised his he would get to stay here. Nurse explained to patient the importance of him being treated by a specialist and that [facility] has a order builder that can treat him and there is bed availability. Patient states understanding.
--- NOTE | 2021-06-18 17:35 | PC.NURSE ---
Report called to [facility] at 1735, at #[phone].
--- NOTE | 2021-06-18 17:46 | PC.NURSE ---
stated patient can be transferred to [facility] via the [facility] ambulance that was available for transfer.
--- NOTE | 2021-06-18 19:00 | PC.NURSE ---
IV site to right AC and left hand left in place due to patient being transferred to another hospital.
--- NOTE | 2021-06-18 19:00 | PC.NURSE ---
EMS here to transport patient to [facility]. All belongings gathered and sent with patient. Patient transferred to stretcher with no issues. Left floor via stretcher accompanied by EMS. Report given to EMS by this nurse, gave discharge/transfer packet to EMS.
== END 2021-06-18 19:04 | disposition short-term general hospital (02) ==
LOC: CHSED 11:33 → CHS2ND 12:46
PROVIDERS: Emergency Medicine; Emergency Provider Emergency Medicine; PCP Nurse Practitioner
DX: J18.9 Pneumonia, unspecified organism (principal); E88.01 Alpha-1-antitrypsin deficiency; K80.20 Calculus of gallbladder without cholecystitis without obstruction; Z87.891 Personal history of nicotine dependence; Z20.822 Contact with and (suspected) exposure to COVID-19
CPT/HCPCS: 36415; 36600; 71250; 71275; 74176; 80053; 82805; 83605; 83880; 84484; 85025; 85380; 87040; 87502; 93005; 94640; 96365; 96366; 96367; 96375; 99285; A9270; C9803; J0456; J0696; J2270; J2405; J7512; Q9967; U0003; U0005

== ENCOUNTER 2021-06-18 20:43 | Inpatient (IN) | payer MEDICARE, SELFPAY ==
--- NOTE | ~2021-06-18 | US_ITS ---
EXAMINATION: US abdomen limited EXAM DATE: 06/19/2021 15:10 INDICATION: Gallstone/distention. TECHNIQUE: Multiple grayscale and Doppler images of the abdomen right upper quadrant were obtained (b y a technologist who performed the scan) and subsequently reviewed. Correlation is made to CT . FINDINGS: The pancreatic head and body are normal in appearance. The pancreatic tail is not visualized. The l iver has normal echogenicity and contour. There are no focal liver lesions identified. There is no evidence of intrahepatic biliary duct dilation. Portal venous flow was seen in the hepatopedal, nor mal direction and has normal Doppler waveform. No right-sided hydronephrosis. Common bile duct measures 2 mm, which is normal. The gallbladder wall is normal in thickness, with ex pected amount of distention. No sonographic evidence of pericholecystic fluid. Multiple gallstones. Technologist performing exam reports patient did not demonstrate sonographic Gabriel's sign. Please note that this sign is less reliable in patients who have received pain medication. IMPRESSION: Cholelithiasis. Reviewed, dictated and finalized at location A. [employer] IMPRESSION: Cholelithiasis.
[2021-06-18 19:35] VITALS: BP 115/53; PULSE 86; RESP 26; TEMP 36.6; O2SAT 98; BMI 25.9
[2021-06-18 20:00] VITALS: O2SAT 98
--- NOTE | 2021-06-18 20:08 | ADMGEN ---
This patient, Jak Bueno, was admitted to [facility] Room 310-01. Patient/family oriented to hospital policies and general routines including ID bracelet, bed and alarms, visiting hours, pain management, procedures, bathroom and other care routines, personal items, smoking policy, room service/diet, and visiting hours. Information on how to activate the Rapid Response Team has been discussed. Patient/Family are encouraged to report perceived risks to care and to ask questions if they do not understand what they are told or what they should do.
[2021-06-18 20:41] VITALS: BP 115/53; PULSE 86; RESP 26; TEMP 36.6; O2SAT 98
--- NOTE | 2021-06-18 21:06 | PM.IMHP ---
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 The patient is evidently been on die barber steroid therapy for many years and 2 weeks ago decided that he was going to give himself a break from his 10 mg of prednisone daily because he felt as if he was getting puffy. He stopped his prednisone without discussing it with his integration specialist. Subsequently he began having bilateral flank pain that radiated around to the right ribcage. It was associated with increased work of breathing and increased shortness of breath. He denied any fevers or chills. He is fully vaccinated against COVID-19 and received his Moderna booster in recent months. He reports that he is on his usual 6 L of home oxygen. He denies any chest pain. He denies any recent ill contacts. He quit smoking 4 years ago but prior to that smoked 2 packs of cigarettes per day from time he was a teenager. He had PFTs performed 09/07/2020 which demonstrated severe obstructive ventilatory impairment mild hyperinflation and severe air trapping with increased airway resistance and severe diffusion impairment. He reports that his symptoms were not improved despite taking cyclobenzaprine and home breathing treatments. He reports that he frequently has bouts of nausea at home and heartburn. He denies any vomiting. While at [facility] the patient received 2 doses of Rocephin and 2 doses of azithromycin. He reported the IV azithromycin cause nausea any switched to oral formulation. He was waiting for 2 days for a bed to open up at [facility] where his integration specialist is. No beds were available and subsequently patient was transferred to our facility. The patient actually wanted to be discharged from [facility] but the ER provider did not feel comfortable with this. The patient is hopeful that he will be discharged on the . Review of Systems Review of Systems: 12 systems were reviewed with pertinent positives and negatives per HPI. Except as documented in the HPI, all other systems were reviewed and are negative. [facility] Past Medical History Medical History (Updated 06/19/21 @ 03:48 by Luz Rodriguez DO) Alpha 1-antitrypsin PiMS phenotype Anxiety Chronic respiratory failure with hypoxia and hypercapnia Chronic respiratory failure with hypoxia, on home O2 therapy 6 L nasal cannula COPD with emphysema GERD (gastroesophageal reflux disease) Spontaneous pneumothorax Right-sided proximally 2017 Surgical History Surgical History (Updated 06/19/21 @ 03:32 by Luz Rodriguez DO) History of tonsillectomy and adenoidectomy Family History Family History (Updated 06/19/21 @ 03:35 by Luz Rodriguez DO) Father Malignant neoplasm of prostate Mother Healthy adult Sibling Healthy adult Social History Social History (Updated 06/19/21 @ 03:35 by Luz Rodriguez DO) Social History: He lives with his of 33 years. He smoked 2 packs per day for 30 years. He drinks alcohol in moderation and on occasion. He denies any illicit substance use. Code status: Full code Surrogate decision maker: Smoking status: Former smoker Alcohol intake: never Substance use: never Spiritual care concerns: No Meds Home Medications and Allergies Home Medications Medication Instructions Recorded Confirmed Type albuterol sulfate 2.5 mg INHALATION Q4-5H PRN 07/05/19 06/18/21 History albuterol sulfate [ProAir HFA] 2 puff INHALATION Q4-5H PRN 07/05/19 06/18/21 History alpha-1 proteinase inhib.(hum) 1,000 mg IV WEEKLY 07/05/19 06/18/21 History [Prolastin-C] buspirone 5 mg PO BID 07/05/19 06/18/21 History cyclobenzaprine
--- NOTE | 2021-06-18 23:36 | PC.NURSE ---
06/18/21 2270 harrison informed while on floor pt refused lovenox. no new orders.
--- NOTE | 2021-06-18 23:38 | PC.NURSE ---
06/18/211937 pt arrived as direct admit to 310. condition stable. o2@6L/nc.
--- NOTE | 2021-06-18 23:40 | PC.NURSE ---
06/18/211943 hospitalist jean claude informed of pt admission.
--- NOTE | 2021-06-18 23:47 | PC.NURSE ---
06/18/212099 after refusing to allow staff to obtain and lock up his home meds pt now allow staff to lock up his meds in the med room.
[2021-06-19] VITALS (15 sets, daily range): BP systolic 92–118; BP diastolic 59–74; PULSE 77–98; RESP 16–25; TEMP 36.2–36.7; O2SAT 95–100
[2021-06-19] MEDS: CALCIUM CARBONATE (TUMS) 500 MG (200 MG ELEMENTAL) 400 MG PO (01:11)
[2021-06-19] MEDS: ALBUTEROL SULFATE NEB 2.5 MG/0.5 ML INH 5 MG INHALATION ×4 (02:14→20:06)
[2021-06-19] MEDS: IPRATROPIUM BR 0.02% INH SOLN 0.5 MG/2.5 ML VIAL INHALATION ×4 (02:15→20:06)
--- NOTE | 2021-06-19 06:07 | PC.NURSE ---
06/19/21 0600 attempted to recheck pt's bp due to low result pt refused.
[2021-06-19 06:31] LABS: Anion Gap 3 mmol/L (8-16); Blood Urea Nitrogen 16 mg/dL (9-20); Calcium 8.9 mg/dL (8.4-10.2); Carbon Dioxide 34 mmol/L (22-30); Chloride 98 mmol/L (98-107); Estimated CRCL calculation 109 ml/min; Estimated Glomerular Filt Rate > 60; Glucose 122 mg/dL (65-110); Potassium 3.7 mmol/L (3.4-5.0); Sodium 135 mmol/L (137-145)
[2021-06-19 06:32] LABS: Basophils Percent Auto 0.1 % (0.2-1.2); Eosinophils Percent Auto 0.2 % (0-4.4); Hematocrit 32.9 % (42.0-52.0); Immature Granulocyte Absolute 0.13 K/mm3 (0.00-0.031); Immature Granulocyte Percent A 0.7 % (0-0.5); Lymphocytes Absolute Auto 2.97 K/mm3 (0.9-3.2); Mean Corpuscular HGB Conc 30.4 g/dl (32-36); Mean Corpuscular Hemoglobin 28.3 pg (26-34); Mean Corpuscular Volume 93.2 fl (80-100); Mean Platelet Volume 9.6 fl (7.4-10.4); Monocytes Percent Auto 9.8 % (2.6-8.5); Neutrophils Absolute Auto 14.7 K/mm3 (1.3-6.7); Neutrophils Percent Auto 74.2 % (45.5-73.1); Platelet Count Result 378 k/mm3 (150-375); Red Blood Count 3.53 M/mm3 (4.6-6.20); Red Cell Distribution Width 13.2 % (11.5-14.5); White Blood Count 19.8 K/mm3 (4.5-10.0)
[2021-06-19] MEDS: ASPIRIN 81 MG ENTERIC TABLET PO (08:07)
[2021-06-19] MEDS: predniSONE 20 MG TABLET 40 MG PO (08:07)
[2021-06-19] MEDS: busPIRone HCL 5 MG TABLET PO ×2 (08:08→16:48)
[2021-06-19] MEDS: CHOLECALCIFEROL 400 UNITS TABLET (VIT D) PO (08:08)
[2021-06-19] MEDS: AZITHROMYCIN 250 MG TABLET PO (08:08)
--- NOTE | 2021-06-19 09:43 | PM.CNPUL ---
Assessment and Plan Assessment and plan (1) Community acquired pneumonia: Qualifiers: Laterality: right Lung location: unspecified part of lung Qualified Code(s): J18.9 - Pneumonia, unspecified organism Code(s): J18.9 - Pneumonia, unspecified organism Status: Acute Assessment and Plan: Patient presented to [facility] with back pain, leukocytosis, CT scan with right lower lobe infiltrate but minimal respiratory complaints. Patient was diagnosed with community-acquired pneumonia. His COVID test and flu swab was negative. Blood cultures are negative. He was started on ceftriaxone and azithromycin. Repeat CT angiogram yesterday demonstrated no PE and a stable or improved right lower lobe infiltrate. I agree with treatment for community-acquired pneumonia with ceftriaxone and azithromycin which were started on 06/17/2021. Patient's his oxygen status is at his baseline of 6 L 24/7 and is requiring 6 L with saturations 98% today. Repeat blood gas showed pH of 7.40/48/94 on 6 L nasal cannula. There is no evidence of acute hypercarbic respiratory failure. patient has had 2 low blood pressures this morning and I spoke with the hospitalist team who will consider ultrasound of the gallbladder. I think it would be prudent for the patient to stay in the hospital overnight despite his wishes to go home today. Will follow with you. (2) Alpha 1-antitrypsin PiMS phenotype: Code(s): R79.9 - Abnormal finding of blood chemistry, unspecified Status: Acute Assessment and Plan: diagnosed at age 37 with hypoxemic respiratory failure requiring 6 L nasal cannula 24-7 for the last 3 or 4 years, on weekly Prolastin injections since age 37, with severe COPD with an FEV1 of 0.59 L, 19% predicted, airtrapping and hyperinflation on PFTs from09/05/2020, a right pneumothorax in 2018 requiring a chest tube which was discontinued with recurrence of the right pneumothorax requiring a 2nd chest tube and he went home with some type of chest tube for approximately a month and then it was DC. Patient had been evaluated by the lung transplant team at [facility] in 2018 and per the patient he was told that his functional status was too good currently to be listed for lung transplantation. Patient follows with his jewelsmith Dr. Donte Gil at [facility] in [facility] and he was last seen on 04/02. Currently has no wheezes. Will change him back to his home regimen of Symbicort 160-4.5 at 2 puffs b.i.d. and prednisone 10 mg p.o. q.day starting tomorrow. Discussed with Quynh Giraldo History of Present Illness History of Present Illness Consult date: 06/19/21 Requesting physician: Mari Giraldo PA-C Reason for consult: pneumonia Chief complaint: Multifocal Pneomonia Narrative: 06/19/2021 this is a new Pulmonary consult for alpha 1 anti trypsin deficiency with pneumonia 55-year-old male with a history of alpha 1 anti trypsin deficiency diagnosed at age 37 with hypoxemic respiratory failure requiring 6 L nasal cannula 24-7 for the last 3 or 4 years, on weekly Prolastin injections since then with severe COPD with an FEV1 of 0.59 L, 19% predicted, on 09/05/2020, a right pneumothorax in 2018 requiring a chest tube which was discontinued with recurrence of the right pneumothorax requiring a 2nd chest tube and he went home with some type of chest tube for approximately a month. Patient had been evaluated by the lung transplant team at [facility] in 2018 and per the patient he was told that his functional status was too good currently to be listed for lung transplantation. Patient follows with his jewelsmith Dr. Flo lan at [facility] in [facility] and he was last seen on 04/02. Patient is maintained on prednisone 10 mg a day, Symbicort 2 puffs b.i.d., rescue Combivent and ProAir and approximate
--- NOTE | 2021-06-19 09:58 | PCRCNOTE ---
Window of time for administration has passed. See next scheduled administration.
--- NOTE | 2021-06-19 10:28 | PM.IMPN ---
Progress Note: A&P Assessment and Plan (1) Community acquired pneumonia: Qualifiers: Laterality: unspecified laterality Qualified Code(s): J18.9 - Pneumonia, unspecified organism Code(s): J18.9 - Pneumonia, unspecified organism Status: Inactive Assessment and Plan: -on rocephin and azithromycin -takes 10 mg predisone PO daily but stopped this 1 week ago because he felt puffy -He did receive 1 dose of IV Solu-Medrol on the 7th and received a total of 25 mg of prednisone on the 8th. -He was placed on 40 mg daily which he received today, will decrease this back to his normal dose of 10 mg daily -Will also continue scheduled nebulizer treatments with albuterol and Atrovent. -Pulmonology has been consulted for further recommendations (2) COPD (chronic obstructive pulmonary disease): Qualifiers: COPD type: COPD with acute lower respiratory infection Qualified Code(s): J44.0 - Chronic obstructive pulmonary disease with (acute) lower respiratory infection Code(s): J44.9 - Chronic obstructive pulmonary disease, unspecified Status: Acute Assessment and Plan: -as above (3) Alpha 1-antitrypsin PiMS phenotype: Code(s): R79.9 - Abnormal finding of blood chemistry, unspecified Status: Acute Assessment and Plan: -followed by Dr. Colon at [facility] -gets weekly Prolastin injections -as above (4) Cholelithiasis: Qualifiers: Biliary obstruction: without biliary obstruction Cholecystitis acuity: acute and chronic Cholelithiasis location: gallbladder Code(s): K80.20 - Calculus of gallbladder without cholecystitis without obstruction Status: Inactive Assessment and Plan: -noted on CT abd w/ possible gallbladder distension -will check RUQ US today (5) Leukocytosis: Code(s): D72.829 - Elevated white blood cell count, unspecified Status: Acute Assessment and Plan: -marked leukocytosis of 19.8 -could be due to steroids however with the significant hypotension which is new today will look into this further -due to infectious process? pneumonia vs cholecystitis? Additional Plan Lovenox was ordered for DVT prophylaxis but patient refused. Switched to SCDs. Subjective Date/time seen: 06/19/21 10:28 Interval history: 55-year-old male with past medical history of end-stage COPD due to alpha-1 antitrypsin deficiency admitted to the hospital for pneumonia. Pt states he feels like he is at his baseline today. He denies cp or increased sob. He is on his baseline 6L of oxygen. Denies fever, cough, or sputum production. He does feel like his abdomen is swollen but this is normal for him. He also complains of some heartburn and states he would like the Tums more often. Review of Systems Review of Systems: All systems reviewed & are unremarkable except as noted in HPI and below Exam Narrative: General: No acute distress, appears older than stated HEENT: Poor dentition, pupils are equal and reactive, nasal cannula in place Respiratory: Decreased breath sounds bilaterally with occasional end-expiratory wheezing Cardiovascular: Regular rate, regular rhythm, 2+ bilateral radial pedal pulses Gastrointestinal: Soft, nontender, nondistended, positive bowel sounds Skin: Mild pallor, non jaundice Musculoskeletal: No edema. Moves all 4 extremities. Neurological: Alert and oriented, speech is clear, no facial asymmetry Psychiatric: Appropriate mood, cooperative Objective Data Vital Signs Vital Signs: Vital Signs - 24 hr 06/18/21 19:35 06/18/21 20:00 06/18/21 20:41 Temperature 97.8 F 97.8 F Pulse Rate 86 86 Respiratory Rate 26 H 26 H Blood Pressure 115/53 L 115/53 L Pulse Oximetry 98 98 98 06/19/21 00:00 06/19/21 02:19 06/19/21 02:21 Temperature 97.4 F L Pulse Rate 82 90 Respiratory Rate 25 H Blood Pressure 118/59 L Pulse Oxime
[2021-06-19] MEDS: FAMOTIDINE 20 MG/2 ML VIAL IV PUSH ×2 (11:09→20:54)
[2021-06-19] MEDS: FLUTICASONE/SALMETEROL 115-21 MCG INHALER 1 PUFF 2 PUFF INHALATION ×2 (11:12→20:06)
[2021-06-19] MEDS: CYCLOBENZAPRINE HCL 10 MG TABLET PO (16:51)
[2021-06-19] MEDS: ENOXAPARIN 40 MG/0.4 ML SYRINGE SUB-Q (20:54)
[2021-06-20] VITALS (8 sets, daily range): BP systolic 109–114; BP diastolic 58–74; PULSE 62–88; RESP 16–18; TEMP 36.2–36.6; O2SAT 96–100
[2021-06-20] MEDS: ALBUTEROL SULFATE NEB 2.5 MG/0.5 ML INH 5 MG INHALATION ×2 (00:07→04:05)
[2021-06-20] MEDS: IPRATROPIUM BR 0.02% INH SOLN 0.5 MG/2.5 ML VIAL INHALATION ×2 (00:08→04:05)
[2021-06-20 06:03] LABS: Basophils Absolute Auto 0.1 K/mm3 (0.0-0.1); Basophils Percent Auto 0.3 % (0.2-1.2); Eosinophils Absolute Auto 0.3 K/mm3 (0-0.3); Eosinophils Percent Auto 1.7 % (0-4.4); Hematocrit 33.4 % (42.0-52.0); Hemoglobin 10.2 g/dL (14.0-18.0); Immature Granulocyte Absolute 0.14 K/mm3 (0.00-0.031); Immature Granulocyte Percent A 0.8 % (0-0.5); Lymphocytes Absolute Auto 5.19 K/mm3 (0.9-3.2); Mean Corpuscular HGB Conc 30.5 g/dl (32-36); Mean Corpuscular Hemoglobin 27.9 pg (26-34); Mean Corpuscular Volume 91.3 fl (80-100); Mean Platelet Volume 9.5 fl (7.4-10.4); Monocytes Absolute Auto 2.1 K/mm3 (0.1-0.6); Monocytes Percent Auto 12.7 % (2.6-8.5); Neutrophils Percent Auto 53.5 % (45.5-73.1); Platelet Count Result 387 k/mm3 (150-375); Red Blood Count 3.66 M/mm3 (4.6-6.20); Red Cell Distribution Width 13.2 % (11.5-14.5); White Blood Count 16.7 K/mm3 (4.5-10.0)
[2021-06-20 06:14] LABS: Alanine Aminotransferase 47 U/L (4-50); Albumin Level 3.8 g/dL (3.5-5.1); Alkaline Phosphatase 64 U/L (38-126); Anion Gap 6 mmol/L (8-16); Aspartate Amino Transferase 42 U/L (17-59); Bilirubin,Total 0.2 mg/dL (0.2-1.3); Blood Urea Nitrogen 22 mg/dL (9-20); Calcium 8.3 mg/dL (8.4-10.2); Carbon Dioxide 35 mmol/L (22-30); Chloride 98 mmol/L (98-107); Estimated CRCL calculation 95 ml/min; Estimated Glomerular Filt Rate > 60; Glucose 104 mg/dL (65-110); Potassium 3.7 mmol/L (3.4-5.0); Sodium 139 mmol/L (137-145)
[2021-06-20] MEDS: FLUTICASONE/SALMETEROL 115-21 MCG INHALER 1 PUFF 2 PUFF INHALATION (08:25)
--- NOTE | 2021-06-20 08:56 | PM.IMPN ---
Progress Note: A&P Assessment and Plan (1) Community acquired pneumonia: Qualifiers: Laterality: right Lung location: unspecified part of lung Qualified Code(s): J18.9 - Pneumonia, unspecified organism Code(s): J18.9 - Pneumonia, unspecified organism Status: Acute (2) COPD (chronic obstructive pulmonary disease): Qualifiers: COPD type: COPD with acute lower respiratory infection Qualified Code(s): J44.0 - Chronic obstructive pulmonary disease with (acute) lower respiratory infection Code(s): J44.9 - Chronic obstructive pulmonary disease, unspecified Status: Acute (3) Abdominal pain: Code(s): R10.9 - Unspecified abdominal pain Status: Acute (4) SOB (shortness of breath): Code(s): R06.02 - Shortness of breath Status: Acute (5) Alpha 1-antitrypsin PiMS phenotype: Code(s): R79.9 - Abnormal finding of blood chemistry, unspecified Status: Acute Subjective Date/time seen: 06/20/21 08:56 Exam Narrative: General: No acute distress, appears older than stated HEENT: Poor dentition, pupils are equal and reactive, nasal cannula in place Respiratory: Decreased breath sounds bilaterally with occasional end-expiratory wheezing Cardiovascular: Regular rate, regular rhythm, 2+ bilateral radial pedal pulses Gastrointestinal: Soft, nontender, nondistended, positive bowel sounds Skin: Mild pallor, non jaundice Musculoskeletal: No edema. Moves all 4 extremities. Neurological: Alert and oriented, speech is clear, no facial asymmetry Psychiatric: Appropriate mood, cooperative Objective Data Vital Signs Vital Signs: Vital Signs - 24 hr 06/19/21 11:13 06/19/21 11:22 06/19/21 12:00 Temperature 98.1 F Pulse Rate 84 86 77 Respiratory Rate 16 Blood Pressure 94/67 L Pulse Oximetry 98 100 06/19/21 16:00 06/19/21 16:20 06/19/21 16:30 Temperature 97.7 F Pulse Rate 84 79 81 Respiratory Rate 16 Blood Pressure 112/72 Pulse Oximetry 96 06/19/21 20:00 06/19/21 20:11 06/19/21 20:22 Temperature 97.2 F L Pulse Rate 82 78 82 Respiratory Rate 20 16 16 Blood Pressure 118/74 Pulse Oximetry 97 97 06/20/21 00:00 06/20/21 00:11 06/20/21 00:30 Temperature 97.1 F L Pulse Rate 86 77 79 Respiratory Rate 18 16 16 Blood Pressure 109/69 Pulse Oximetry 100 06/20/21 04:00 06/20/21 04:05 06/20/21 04:15 Temperature 97.4 F L Pulse Rate 62 77 78 Respiratory Rate 18 16 16 Blood Pressure 114/58 L Pulse Oximetry 100 06/20/21 08:00 06/20/21 08:28 Temperature 97.8 F Pulse Rate 88 Respiratory Rate 18 Blood Pressure 112/74 Pulse Oximetry 96 96 Intake/Output Intake/Output: Intake & Output 06/17/21 06/18/21 06/19/21 06/20/21 23:59 23:59 23:59 23:59 Intake Total 2290 500 Balance 2290 500 Meds/Results Medications: Active Medications Generic Name Dose Route Start Last Admin Trade Name Freq PRN Reason Stop Dose Admin Acetaminophen 650 mg 06/18/21 20:55 Acetaminophen 325 Mg Tablet PO Q4H PRN Mild Pain (1-3) or Fever Aspirin 81 mg 06/19/21 09:00 06/19/21 08:07 Aspirin 81 Mg Enteric Tablet PO 81 mg DAILY KEAGAN Administration Azithromycin 250 mg 06/19/21 09:00 06/19/21 08:08 Azithromycin 250 Mg Tablet PO 06/21/21 09:01 250 mg DAILY KEAGAN Administration Buspirone HCl 5 mg 06/19/21 09:00 06/19/21 16:48 Buspirone Hcl 5 Mg Tablet PO 5 mg BID KEAGAN Administration Calcium Carbonate 400 mg 06/19/21 10:30 Calcium Carbonate (Tums) 500 Mg (200 Mg Elemental) PO Q4H PRN Indigestion Cyclobenzaprine HCl 10 mg 06/18/21 22:49 06/19/21 16:51 Cyclobenzaprine Hcl 10 Mg Tablet PO 10 mg BID PRN Administration Muscle pain Enoxaparin Sodium 40 mg 06/18/21 21:00 06/19/21 20:54 Enoxaparin 40 Mg/0.4 Ml Syringe SUB-Q 40 mg HS KEAGAN Administration Famotidine 20 mg 06/19/21 10:30 06/19/21 20:54 Famotidine 20 Mg/2 Ml
[2021-06-20] MEDS: CHOLECALCIFEROL 400 UNITS TABLET (VIT D) PO (09:21)
[2021-06-20] MEDS: ASPIRIN 81 MG ENTERIC TABLET PO (09:21)
[2021-06-20] MEDS: busPIRone HCL 5 MG TABLET PO (09:21)
[2021-06-20] MEDS: AZITHROMYCIN 250 MG TABLET PO (09:21)
[2021-06-20] MEDS: FAMOTIDINE 20 MG/2 ML VIAL IV PUSH (09:21)
[2021-06-20] MEDS: predniSONE 10 MG TABLET PO (09:21)
--- NOTE | 2021-06-20 09:45 | PM.PNPUL ---
Progress Note: A&P Assessment and Plan (1) Community acquired pneumonia: Qualifiers: Laterality: right Lung location: unspecified part of lung Qualified Code(s): J18.9 - Pneumonia, unspecified organism Code(s): J18.9 - Pneumonia, unspecified organism Status: Acute Assessment and Plan: Patient presented to [facility] with back pain, leukocytosis, CT scan with right lower lobe infiltrate but minimal respiratory complaints. Patient was diagnosed with community-acquired pneumonia. His COVID test and flu swab was negative. Blood cultures are negative. He was started on ceftriaxone and azithromycin. Repeat CT angiogram yesterday demonstrated no PE and a stable or improved right lower lobe infiltrate. I agree with treatment for community-acquired pneumonia with ceftriaxone and azithromycin which were started on 06/17/2021. Patient's his oxygen status is at his baseline of 6 L /7 and is requiring 6 L with saturations 98% today. Repeat blood gas showed pH of 7.40/48/94 on 6 L nasal cannula. There is no evidence of acute hypercarbic respiratory failure. patient has had 2 low blood pressures this morning and I spoke with the hospitalist team who will consider ultrasound of the gallbladder. I think it would be prudent for the patient to stay in the hospital overnight despite his wishes to go home today. 06/20 patient states he is at his baseline. He denies any fever, chills, cough, phlegm or hemoptysis. He has been out of the bed and walking in the room. Patient is on 6 L nasal cannula which is his baseline and saturations are 97-100%. White blood cell count 16.7. No abdominal pain and US abdomen yesterday with cholelithiasis, normal gallbladder, common bile duct 2 mm from a pulmonary perspective patient is ready for discharge on these pulmonary medicines: levofloxacin 750 mg x6 days prednisone 10 mg p.o. q.day Symbicort 160-4.5 at 2 puffs b.i.d. Rescue albuterol 2 puffs Q 4 hours p.r.n. shortness of breath or wheezing 6 L oxygen 24 hours a day patient is already notified his lining layer Dr. Gil about this hospitalization and he will call him once he is discharged for follow-up plans. (2) Alpha 1-antitrypsin PiMS phenotype: Code(s): R79.9 - Abnormal finding of blood chemistry, unspecified Status: Acute Assessment and Plan: diagnosed at age 37 with hypoxemic respiratory failure requiring 6 L nasal cannula 24-7 for the last 3 or 4 years, on weekly Prolastin injections since age 37, with severe COPD with an FEV1 of 0.59 L, 19% predicted, airtrapping and hyperinflation on PFTs from09/05/2020, a right pneumothorax in 2018 requiring a chest tube which was discontinued with recurrence of the right pneumothorax requiring a 2nd chest tube and he went home with some type of chest tube for approximately a month and then it was DC. Patient had been evaluated by the lung transplant team at [facility] in 2018 and per the patient he was told that his functional status was too good currently to be listed for lung transplantation. Patient follows with his lining layer Dr. Donte Gil at [facility] in [facility] and he was last seen on 04/02. Currently has no wheezes. Will change him back to his home regimen of Symbicort 160-4.5 at 2 puffs b.i.d. and prednisone 10 mg p.o. q.day starting tomorrow. 06/20 no wheezes Discussed with Debbie Gant Subjective Date/time seen: 06/20/21 09:45 Interval history: 06/19/2021 this is a new Pulmonary consult for alpha 1 anti trypsin deficiency with pneumonia 55-year-old male with a history of alpha 1 anti trypsin deficiency diagnosed at age 37 with hypoxemic respiratory failure requiring 6 L nasal cannula 24-7 for the last 3 or 4 years, on weekly Prolastin injections since then with severe COPD with an FEV1 of 0.59 L, 19% predicted, on 09/05/2020, a right pneumothorax in 20
--- NOTE | 2021-06-20 11:20 | PM.DS ---
DS: Admitting Diagnosis Discharge Date 06/20/21 Admitting Diagnosis (1) Community acquired pneumonia: Qualifiers: Laterality: unspecified laterality Qualified Code(s): J18.9 - Pneumonia, unspecified organism Code(s): J18.9 - Pneumonia, unspecified organism Status: Inactive (2) COPD (chronic obstructive pulmonary disease): Qualifiers: COPD type: COPD with acute lower respiratory infection Qualified Code(s): J44.0 - Chronic obstructive pulmonary disease with (acute) lower respiratory infection Code(s): J44.9 - Chronic obstructive pulmonary disease, unspecified Status: Acute (3) Alpha 1-antitrypsin PiMS phenotype: Code(s): R79.9 - Abnormal finding of blood chemistry, unspecified Status: Acute DS: Discharge Diagnosis Discharge Diagnosis (1) Community acquired pneumonia: Qualifiers: Laterality: right Lung location: unspecified part of lung Qualified Code(s): J18.9 - Pneumonia, unspecified organism Code(s): J18.9 - Pneumonia, unspecified organism Status: Acute (2) COPD (chronic obstructive pulmonary disease): Qualifiers: COPD type: COPD with acute lower respiratory infection Qualified Code(s): J44.0 - Chronic obstructive pulmonary disease with (acute) lower respiratory infection Code(s): J44.9 - Chronic obstructive pulmonary disease, unspecified Status: Acute (3) Abdominal pain: Code(s): R10.9 - Unspecified abdominal pain Status: Acute (4) Alpha 1-antitrypsin PiMS phenotype: Code(s): R79.9 - Abnormal finding of blood chemistry, unspecified Status: Acute (5) Chronic respiratory failure with hypoxia and hypercapnia: Code(s): J96.11 - Chronic respiratory failure with hypoxia; J96.12 - Chronic respiratory failure with hypercapnia Status: Acute (6) Chronic respiratory failure with hypoxia, on home O2 therapy: Code(s): J96.11 - Chronic respiratory failure with hypoxia; Z99.81 - Dependence on supplemental oxygen Status: Inactive DS: Summary Hospital Course Reason for hospitalization: shortness of breath Hospital Course: 55-year-old male transferred from [facility] to [facility] for evaluation by pulmonology since his cigar head perforator was unavailable at [facility]. Dr. Hanley was consulted and recommendations given in regards to treatment of his pneumonia in the presence of chronic disease 2/2 alpha 1 antitrypsin. Patient was treated with Rocephin and azithromycin as well as high-dose steroids. He improved medical therapy as anticipated. At the time of discharge he is on his home quantity of 6 L of oxygen therapy a considered stable from respiratory standpoint. He is advised to continue Levaquin for 6 more days 750 mg p.o. q.day in addition to Symbicort and his home dose of prednisone 10 mg p.o. q.day. Status at Discharge Functional status at discharge: independent ambulation Overall status at discharge: patient is back to baseline Time Spent with Patient Time attestation: Total time spent providing and/or coordinating discharge services: Time spent: Greater than 30 minutes Exam Narrative: General: No acute distress, appears older than stated, chronically ill-appearing HEENT: Poor dentition, EOMI, nasal cannula in place Respiratory: Decreased breath sounds bilaterally with occasional end-expiratory wheezing Cardiovascular: Regular rate, regular rhythm, 2+ bilateral radial pedal pulses Musculoskeletal: No edema. Moves all 4 extremities. Neurological: Alert and oriented, speech is clear, no facial asymmetry Psychiatric: Appropriate mood, cooperative DS: Data Data Completed and Pending Labs on day of discharge: Labs from last 24 hours 06/20/21 06/20/21 05:34 05:34 WBC 16.7 H RBC 3.66 L Hgb 10.2 L Hct 33.4 L MCV 91.3 MCH 27.9 MCHC 30.5 L RDW 13.2 Plt Count 387 H MPV 9.5 Immature Gran % (Auto) 0.8 H Neut % (Auto) 53.5
== END 2021-06-20 12:22 | disposition home or self-care (01) | DRG 194 ==
PROVIDERS: Internal Medicine; Admitting Provider Hospitalist; PCP Nurse Practitioner; Visit Provider Physician Assistant
DX: J18.9 Pneumonia, unspecified organism (principal); J44.0 Chronic obstructive pulmonary disease with (acute) lower respiratory infection; J96.11 Chronic respiratory failure with hypoxia; J96.12 Chronic respiratory failure with hypercapnia; R79.9 Abnormal finding of blood chemistry, unspecified; K21.9 Gastro-esophageal reflux disease without esophagitis; D72.829 Elevated white blood cell count, unspecified; Z99.81 Dependence on supplemental oxygen; Z87.891 Personal history of nicotine dependence
CPT/HCPCS: 36415; 76705; 80048; 80053; 85025; 94640; A9270; J0696; J1650; J7512

== ENCOUNTER 2021-07-31 14:19 | Outpatient (CLI) | payer MEDICARE, SELFPAY ==
--- NOTE | ~2021-07-31 | XR_ITS ---
EXAMINATION: XR chest 2V DATE: 07/31/2021 14:44 INDICATION: Community-acquired pneumonia. TECHNIQUE: Frontal and lateral views of the chest were obtained on 3 radiographs. COMPARISON: Chest single view 11/29/2020, chest CT 06/18/2021 FINDINGS: The lungs are hyperexpanded with lucencies, consistent with emphysema. There are airspace o pacities at the lung bases. No pleural effusion or pneumothorax. The heart size is normal. IMPRESSION: 1. Airspace opacities at the lung bases, consistent with atelectasis/scarring versus pneumonia. 2. Severe emphysema. Reviewed, dictated and finalized at location B. IMPRESSION: 1. Airspace opacities at the lung bases, consistent with atelectasis/scarring v ersus pneumonia. 2. Severe emphysema.
== END 2021-07-31 14:20 | disposition home or self-care (01) ==
LOC: CHSLAB 14:23
DX: J18.9 Pneumonia, unspecified organism (principal)
CPT/HCPCS: 71046

== ENCOUNTER 2022-11-24 10:28 | Outpatient (CLI) | payer MEDICARE, SELFPAY ==
[2022-11-24 10:35] VITALS: PULSE 92; O2SAT 90
[2022-11-24 10:38] VITALS: PULSE 106; O2SAT 85
[2022-11-24 10:39] VITALS: PULSE 109; O2SAT 86
[2022-11-24 10:42] VITALS: PULSE 102; O2SAT 89
[2022-11-24 10:50] VITALS: PULSE 100; O2SAT 91
[2022-11-24 10:55] VITALS: PULSE 98; O2SAT 92
--- NOTE | 2022-11-24 11:26 | HOMEO2EVAL ---
Evaluation was performed at [facility] Home Oxygen Evaluation RC: Home Oxygen (O2) Evaluation Start: 11/24/22 10:49 Freq: Status: Active Protocol: RPE Activity Type Activity Date Activity User E-sign Co-sign Detail Recorded Client Recorded Date Recorded By Document 11/24/22 10:35 [id number] 11/24/22 11:25 CH Document 11/24/22 10:38 [id number] 11/24/22 11:25 CH Document 11/24/22 10:39 [id number] 11/24/22 11:25 Document 11/24/22 10:42 [id number] 11/24/22 11:25 Document 11/24/22 10:50 [id number] 11/24/22 11:25 Document 11/24/22 10:55 CH [id number] 11/24/22 11:25 CH 11/24/22 11/24/22 11/24/22 10:35 10:38 10:39 Home O2 Evaluation [Oxygen] -Test Phase Resting Exercise Resting -Oxygen Delivery Room Air Room Air Nasal Cannula -Oxygen Flow Rate (L/min) 2 [Pulse Oximetry] -Pulse Oximetry (90-100 %) 90 85 L 86 L [Pulse Rate] -Pulse Rate (60-100 beats/min) 92 106 H 109 H [Evaluation] -Activity Tolerance Fair Fair Fair -Rating of Perceived Dyspnea (PD) +2 Mild, Some +2 Mild, Some +2 Mild, Some Difficulty, Difficulty, Difficulty, Noticeable to Noticeable to Noticeable to the Observer the Observer the Observer -Rate of Perceived Exertion (PE) 11 Fairly light 12 12 Query Text:Click the Protocol Button to View the RPE Scale [Exercise] -Ambulation Distance (feet) 6 -Ambulation Distance (meters) 1.82 [Comments] -Home Oxygen Evaluation Comments will begin walk will start patients on room air patient on 2LPM saturations remained 86% will increase to 4LPM [Charges] -Treatment Charges O2 Evaluation - Outpatient 11/24/22 11/24/22 11/24/22 10:42 10:50 10:55 Home O2 Evaluation [Oxygen] -Test Phase Resting Resting Exercise -Oxygen Delivery Nasal Cannula Nasal Cannula -Oxygen Flow Rate (L/min) 4 6 6 [Pulse Oximetry] -Pulse Oximetry (90-100 %) 89 L 91 92 [Pulse Rate] -Pulse Rate (60-100 beats/min) 102 H 100 98 [Evaluation] -Activity Tolerance Fair Fair Fair -Rating of Perceived Dyspnea (PD) +3 Moderate +2 Mild, Some +4 Severe Difficulty, But Difficulty, Difficulty, Can Continue Noticeable to Participant the Observer Cannot Continue -Rate of Perceived Exertion (PE) 12 12 13 Somewhat Query Text:Click the Protocol Button Hard to View the RPE Scale [Exercise] -Ambulation Distance (feet) 100 -Ambulation Distance (meters) 30.47 [Comments] -Home Oxygen Evaluation Comments will increase will start walk ended walk on O2 to 6LPM again 6LPM saturations 92% pt walked a total of 100 feet and requested to use the wheel chair due to being out of breath. [Charges] -Treatment Charges
== END 2022-11-24 10:29 | disposition home or self-care (01) ==
LOC: CHSTREATRM 10:32
PROVIDERS: Visit Provider Internal Medicine Pulmonary Disease
DX: J43.2 Centrilobular emphysema (principal)
CPT/HCPCS: 94618

== ENCOUNTER 2023-02-21 09:56 | Emergency (ER) | payer MEDICARE, SELFPAY ==
[2023-02-21] VITALS (8 sets, daily range): BP systolic 102–137; BP diastolic 53–91; PULSE 70–97; RESP 17–22; TEMP 36.8–36.9; O2SAT 92–97
--- NOTE | ~2023-02-21 | CT_ITS ---
EXAMINATION: CT chest abdomen pelvis wo con DATE: 02/21/2023 11:09 INDICATION: Right flank pain. Shortness of breath. TECHNIQUE: Computed tomography (CT) of the chest, abdomen, and pelvis was performed without intraveno us contrast. Automated exposure control and iterative reconstruction technique were employed. The dos e-length product was 771.79 mGy-cm. COMPARISON: CT 06/18/2021, 06/17/2021 FINDINGS: CHEST CT: There is severe emphysema. There is mild bronchiectasis in the inferior lungs. There are tree-in-bud opacities and centrilobular nodules in left lower lobe. No pleural effusion. The heart size is normal . No pericardial effusion. There is mild thoracic spondylosis. ABDOMEN/PELVIS CT: The liver is normal. There are changes of cholecystectomy. The spleen, pancreas, and adrenal glands a re normal. There is a 4 mm stone in right kidney. There is mild right hydronephrosis and hydroureter. There is a 2 mm stone in distal right ureter. There is a 2 mm stone in left kidney. There is an umbi lical hernia containing fat. There are bilateral inguinal hernias containing fat. The appendix is nor mal. Aortic atherosclerosis is noted. There are no pathologically enlarged lymph nodes. There is no f ree intraperitoneal fluid. There is osteonecrosis of the femoral heads. There is mild lumbar spondylo sis. IMPRESSION: 1. 2 mm stone at right ureterovesicular junction with mild right hydronephrosis and hydroureter. 2. Small nonobstructing kidney stones. 3. Severe emphysema. 4. Mild left lower lobe pneumonia. Reviewed, dictated and finalized at location A. SSIONS REPRESENTATIVE
[2023-02-21] MEDS: KETOROLAC 30 MG/ML VIAL (*BKC) IV PUSH (10:32)
[2023-02-21] MEDS: ORPHENADRINE CITRATE 30 MG/ML 2 ML VIAL 60 MG IV PUSH (10:32)
--- NOTE | 2023-02-21 11:31 | ED.BACK ---
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 right flank pain is described as dull aching and decreased with rest increased with some deep inspiration rates at about a 9/10 with no fever chills no chest pain no dysuria no hematuria, with nausea with no episodes of vomiting no diarrhea or constipation. MD elicited complaint: back pain Pertinent past history: prior back pain Onset (ago): hour(s) Timing: constant Severity: severe Pain scale (0-10): 9 Quality: sharp Location: right flank Relieving factors: immobilization Related Data Home Medications Medication Instructions Recorded Confirmed albuterol sulfate 2.5 mg/3 mL 2.5 mg inhalation Q4-5H PRN 07/05/19 02/21/23 (0.083 %) solution for nebulization Shortness Of Breath albuterol sulfate 90 mcg/actuation 2 puff inhalation Q4-5H PRN 07/05/19 02/21/23 aerosol inhaler (ProAir HFA) Shortness Of Breath alpha-1 proteinase inhib.(hum) 1,000 mg IV WEEKLY 07/05/19 02/21/23 1,000 mg (+/-)/20 mL IV solution (Prolastin-C) buspirone 5 mg tablet 5 mg PO BID 07/05/19 02/21/23 cyclobenzaprine 10 mg tablet 10 mg PO BID PRN Pain 07/05/19 02/21/23 aspirin 81 mg tablet,delayed 81 mg PO DAILY 05/29/20 06/18/21 release cholecalciferol (vitamin D3) 10 10 mcg PO DAILY 05/29/20 06/18/21 mcg (400 unit) capsule (Vitamin D3) Allergies Allergy/AdvReac Type Severity Reaction Status Date / Time No Known Allergies Allergy Verified 02/21/23 10:06 Review of Systems Review of Systems: All systems reviewed & are unremarkable except as noted in HPI and below PMFSH Past Medical History Medical History Alpha 1-antitrypsin PiMS phenotype Anxiety Chronic respiratory failure with hypoxia and hypercapnia Chronic respiratory failure with hypoxia, on home O2 therapy 6 L nasal cannula COPD with emphysema GERD (gastroesophageal reflux disease) Spontaneous pneumothorax Right-sided proximally 2018 Surgical History Surgical History History of tonsillectomy and adenoidectomy Family History Family History Father Malignant neoplasm of prostate Mother Healthy adult Sibling Healthy adult Social History Social History Social History: He lives with his of 33 years. He smoked 2 packs per day for 30 years. He drinks alcohol in moderation and on occasion. He denies any illicit substance use. Code status: Full code Surrogate decision maker: Smoking status: Former smoker Alcohol intake: never Substance use: never Spiritual care concerns: No Exam Const: General: no acute distress Nutritional Appearance: well nourished HENMT: Head: normal to inspection Neck: Neck: normal visual inspection, no lymphadenopathy and no meningeal signs Chest: Chest palpation & inspection: normal inspection of the chest Resp: Effort & Inspection: normal respiratory effort Auscultation: diminished lung sounds Cardio: Rate: regular rate Rhythm: regular rhythm GI: GI Palp: Yes Soft to palpation and Yes Tenderness to palpation present (GI) : General: Yes bladder normal to palpation Back/Spine/Pelvis: Back: CVA tender
[2023-02-21] MEDS: levoFLOXacin 500 MG/D5W 100 ML 500 MG/100 ML BAG 100 MG IVPB (11:37)
== END 2023-02-21 12:41 | disposition home or self-care (01) ==
PROVIDERS: Emergency Provider Emergency Medicine
DX: N20.1 Calculus of ureter (principal); J18.9 Pneumonia, unspecified organism; E88.01 Alpha-1-antitrypsin deficiency; J43.9 Emphysema, unspecified; J96.12 Chronic respiratory failure with hypercapnia; J96.11 Chronic respiratory failure with hypoxia; K21.9 Gastro-esophageal reflux disease without esophagitis; F41.9 Anxiety disorder, unspecified; Z99.81 Dependence on supplemental oxygen; Z79.51 Long term (current) use of inhaled steroids; Z79.82 Long term (current) use of aspirin; Z87.891 Personal history of nicotine dependence; N40.1 Benign prostatic hyperplasia with lower urinary tract symptoms
CPT/HCPCS: 71250; 74176; 96365; 96375; 99284; J1885; J1956; J2360